=== PATIENT | male | born 1925 | race Caucasian/White ===

== ENCOUNTER 2016-07-06 09:34 | Day surgery (SDC) | payer MEDICARE ==
[~2016-07-06] VITALS: Ht 177.8 cm; Wt 85.0 kg
[~2016-07-06 09:34] MED LIST: 0.9% Sodium Chloride 1,000 ML IV PRN; ASPI-973 PO; CEPH500C PO; ECON15CR10 TOP; HYDR-4003 PO; ISOS30TA4 PO; KRIL1CAP19 PO; KTC2C15 TP; LOVA40TA PO; NITR0.4T SL; OMEP20CA11 PO; Sodium Chloride LOK Flush 10 mL Syringe IV PRN; TAMS0.4C98 PO; TERB250T11 PO; UBID1CAP58 PO; fentaNYL-PF 50 mCg/mL 2 mL Inj IVPUSH PRN
[2016-07-06 10:53] VITALS: BP 115/60; PULSE 69; RESP 14; O2SAT 97
[2016-07-06 12:10] VITALS: BP 96/61; PULSE 77; RESP 14; O2SAT 94
[2016-07-06 12:31] VITALS: BP_SYST 110; BP_SYST 112; BP_DIAS 65; BP_DIAS 66; PULSE 66; PULSE 77; RESP 14; O2SAT 94
--- NOTE | 2016-07-06 21:55 | ENDO ---
[address] [address] ENDOSCOPY PROCEDURE PATIENT: YU LAIRD : 1925 MR#: [id number] ADMIT: 07/06/2016 JOB ID: [id number] PRIMARY PROVIDER: Zoe Batista PA-C PROCEDURE: Colonoscopy with biopsies. INDICATIONS: An 89-year-old male with a personal history of colon polyps. He has had experienced a change in bowel habits. EQUIPMENT: PCF H 180 AL. SEDATION: 2 mg Versed and 50 mcg fentanyl. COMPLICATIONS: None identified. BOWEL PREPARATION: Fair, adequate exam. PROCEDURE IN DETAIL: After the risks and benefits were explained, written and verbal informed consent was obtained. The patient was brought into the endoscopy suite and placed into the left lateral decubitus position. Sedation was achieved using the above-stated medications with the addition of oxygen via nasal cannula. A digital rectal examination was accomplished. No significant pathology apart from some mild internal hemorrhoids were noted. The scope was introduced into the rectum and advanced under direct visualization to the level of the cecum, as identified by the appendiceal orifice and ileocecal valve. The scope was slowly withdrawn to carefully examine the mucosa for any defects or lesions. Retroflexed views were accomplished in the rectum. The colon was decompressed. The scope removed from the patient who tolerated the procedure well. FINDINGS: No significant polyps, mass lesions, or inflammatory features identified throughout. Random biopsies were taken for exclusion of microscopic colitis. There was some mild diverticulosis in the left colon. The patient had a lengthy, rather redundant colon. Retroflexed views performed within the rectum were unremarkable. ENDOSCOPIC DIAGNOSES: 1. Diverticulosis. 2. Hemorrhoids. RECOMMENDATIONS: 1. Await histopathology. 2. No surveillance colonoscopy is required or anticipated. 3. Continue with efforts to maintain hydration, activity and fiber supplementation as advised in the office. 4. Follow up with GI as needed.
--- NOTE | 2016-07-07 12:11 | PATH ---
SURGICAL PATHOLOGY Attending Physician:Devi Dunn CASE STATUS: Signed Out PATIENT NAME: YU LAIRD PID: [id number] : 1925 DATE COLLECTED:07/06/2016 21:36 SPECIMEN: Colon, Biopsy CLINICAL HISTORY: CHANGE IN BOWEL HABITS 1). RANDOM COLON BIOPSY FINAL DIAGNOSIS: 1.RANDOM COLON BIOPSY: COLONIC MUCOSA WITH NO DIAGNOSTIC ALTERATIONS. NEGATIVE FOR INFLAMMATION, DYSPLASIA AND MALIGNANCY. ICD10 CODE R19.4 GROSS DESCRIPTION: The specimen is received in one formalin filled container labeled with the patient's name, sublabeled "random colon" and consists of 2 extremely tiny portions of tissue which aggregate to 0.2 x 0.2 x 0.2 CM. The specimen is entirely submitted in one cassette. 07/06/2016 [facility] MICRO DESCRIPTION: See diagnosis. ICD-9 CODES: CPT CODES: 1: 06276 Electronically Signed Out Janeen Cadlera MD [facility] Pathology [facility] [address], [place] [address] Technical component performed at [facility], [address] [place] [address] Ave[address], [place], [address]
== END 2016-07-06 23:59 | disposition home or self-care (01) ==
LOC: END 09:34
PROVIDERS: ATTEND Internal Medicine Gastroenterology
DX: R19.4 Change in bowel habit (principal); K57.32 Diverticulitis of large intestine without perforation or abscess without bleeding; K64.8 Other hemorrhoids
CPT/HCPCS: 45380; 88305; 99153; G0500; J2250; J3010; J7030

== ENCOUNTER 2016-12-18 17:47 | Observation (INO) | payer MEDICARE ==
[~2016-12-18] VITALS: Ht 177.8 cm; Wt 86.0 kg
[~2016-12-18 17:47] MED LIST changes: -0.9% Sodium Chloride 1,000 ML IV PRN; -CEPH500C PO; -HYDR-4003 PO; -Sodium Chloride LOK Flush 10 mL Syringe IV PRN; -TAMS0.4C98 PO; -fentaNYL-PF 50 mCg/mL 2 mL Inj IVPUSH PRN
[2016-12-18 17:52] VITALS: BP 122/60; PULSE 88; RESP 18; O2SAT 98
--- NOTE | 2016-12-18 17:52 | ED.REPORT ---
HPI-Stroke / CVA Dec 18, 2016 ED Provider: Gary Bradley Patient is an 89 year old male with a hx of valvular heart disease, pacemaker insertion, and cardiac stent placement who presents to the ED complaining of L arm weakness s/p waking up from a nap at 1530 today. He was having difficulty moving his L arm upon waking and experienced "cramping" in his L hand. He reports that his symptoms gradually resolved after 5-10 minutes and he is now asymptomatic. He denies weakness, chest pain, SOB, confusion, headache, vision changes, abdominal pain, or any other symptoms. Nurses report that he was slightly disoriented upon arrival with an NIH stroke scale of 1. He is not on blood thinners but takes 81mg of aspirin daily. Nursing Notes Stated Complaint: STOKE SYMPTOMS Chief Complaint: Neuro Symptoms/ Deficits Nursing Notes Reviewed: Yes Allergies: Coded Allergies: No Known Allergies (Unverified , 03/15/16) Scheduled Aspirin (Aspirin) 81 Mg Tablet 81 MG PO QAM (Reported) Ketoconazole (Ketoconazole) 200 Mg Tablet 200 MG PO BID (Reported) Lovastatin (Lovastatin) 40 Mg Tablet 40 MG PO HS (Reported) Metoprolol Succinate ER (Metoprolol Succinate ER) 25 Mg Tab.er.24h 25 MG PO QAM (Reported) Haugan 3,6,9 Combination No.7 (Haugan Dha) 92 Mg (43 Mg-22 Mg-10 Mg-17 Mg) Tab.chew 1 TABLET PO QID (Reported) Omeprazole (Omeprazole) 20 Mg Capsule.dr 20 MG PO QAM (Reported) Tamsulosin (Flomax) 0.4 Mg Capsule 0.4 MG PO HS (Reported) Ubidecarenone/Vitamin E Mixed (Cop13-Zfb E 100 mg-10 Unit Sfg) 100 Mg-10 Unit Capsule 2 EACH PO QAM (Reported) Scheduled PRN Nitroglycerin SL (Nitrostat) 0.4 Mg Tab.subl 0.4 MG SL Q5MIN PRN PRN For Chest Pain (Reported) Triamcinolone Acet (Triamcinolone Acetonide Cream) 1 Applic/0.25 Gm Cr 1 APPLIC EXT BID PRN PRN RASH (Reported) General Time Seen by Provider: 17:52 Chief Complaint Weakness Left-sided Hx Obtained From: Patient Arrived By: Walk-in Time last known well 1529 Sudden in Onset?: Yes Progression Since Onset: Rapidly improving Severity: Current: No pain currently Severity: Maximum: No pain Pertinent Negative: Pt denies other symptoms Context Related History: Denies: Coagulation disorder Context: Immunizations Unknown Risk Factors )( TPA Administration/Criteria Stroke Thrombolytic Therapy : TPA Considered: Yes Neurologist Contacted: No TPA Administered Intravenously: No, exclusion criteria Relative Exclusion Crit: Rapidly improv stroke sym Addl Ex Criteria 3-4.5 Hr: Age > 80 years )( CVA Risk Stratification Age >60No Anticoag/bleed diathesis, No Atrial fibrillation, No Clotting disorder, No Oral contraceptive, No Prior CVA/TIA Risk factors reviewed Past Medical History Past Medical History Valvular heart disease MRSA Reports: GERD Past Surgical History CABG Reports: Back/neck surgery, Pacemaker insertion Smoking History Former Smoker Social History Other Social History: Good social support, Ambulatory Status Independent Review of Systems Review of Systems Note: +L hand cramping Respiratory: Denies: Shortness of breath Cardiovascular: Denies: Chest pain GI: Denies: Abdominal pain Neurologic: Reports: Weakness (L arm ), Denies: Confusion, Headache, Vision change Complete sys rev & neg: except as marked. Physical Exam Nursing note and vitals reviewed. Constitutional: Well-developed, well-nourished. Not diaphoretic. Head: Normocephalic and atraumatic. Mouth/Throat: Oropharynx is clear and moist. No oropharyngeal exudate. Eyes: EOM are normal. Pupils are equal, round, and reactive to light. Neck: Supple, no tracheal deviation. Cardiovascular: Normal rate, regular rhythm. Equal and intact distal pulses throughout. Pulmonary/Chest: Effort normal and breath sounds normal. No respiratory distress. Musculoskeletal: Range of motion grossly intact, moving all extremities. Neurological: AOx3. Grossly nonfocal exam. Strength and sensation intact and equal to bilateral upper and lower extremities. No pronator drift. NIH stroke scale score 0. Cranial nerves II-XII intact. Skin: Warm and dry, no rashes or pallor appreciated. Psychiatric: Appropriate mood and affect. Behavior appears normal. Initial Vital Signs Vital Signs (First) Date Time Temp Pulse Resp B/P Pulse Ox O2 Delivery O2 Flow Rate FiO2 12/18/16 17:52 37.1 88 18 122/60 98 Room Air Interpretation & Diagnostics Lab Results Interpretation Result Diagram: 12/18/16 1800 12/18/16 1800 Test 12/18/16 18:00 White Blood Count 5.6th/mm3 (3.8-10.1) Red Blood Count 3.68mil/mm3 (4.40-5.80) Hemoglobin 11.4g/dL (13.8-17.2) Hematocrit 33.7% (41.0-50.0) Mean Corpuscular Volume 91.6fL (81-100) Mean Corpuscular Hemoglobin 31.0pg (27.0-35.0) Mean Corpuscular Hemoglobin Concent 33.8% (32.0-37.0) Red Cell Distribution Width 14.6% (12.3-15.4) Platelet Count 118bil/L (150-400) Neutrophils (%) (Auto) 59.1% (40-74) Lymphocytes (%) (Auto) 26.3% (14-46) Monocytes (%) (Auto) 10.6% (4-12) Eosinophils (%) (Auto) 3.2% (0-5) Basophils (%) (Auto) 0.4% (0-3) Prothrombin Time 12.2sec (8.1-12.5) Prothromb Time International Ratio 1.14ratio Activated Partial Thromboplast Time 30.9sec (22.8-33.0) Sodium Level 143mEq/L (134-144) Potassium Level 4.5mEq/L (3.5-5.2) Chloride Level 106mEq/L (97-108) Carbon Dioxide Level 22mmol/L (18-29) Blood Urea Nitrogen 36mg/dL (8-27) Creatinine 1.81mg/dL (0.76-1.27) Estimat Glomerular Filtration Rate 38mL/min (>59) Glucose Level 102mg/dL (60-99) Calcium Level 9.0mg/dL (8.5-10.1) Total Bilirubin 0.3mg/dL (0.0-1.2) Aspartate Amino Transf (AST/SGOT) 21U/L (0-50) Alanine Aminotransferase (ALT/SGPT) 19U/L (0-44) Alkaline Phosphatase 59U/L (25-160) Troponin T < 0.010ug/L (0.0-0.011) Total Protein 6.6g/dL (6.4-8.4) Albumin 4.0g/dL (3.4-5.0) Hold Santos Top Tube Received (Received) Alcohols < 10mg/dL (0-10) ECG Interpretation ECG Interpretation: Rate 60 No significant change from previous Atrial-paced complexes nonspecific IVCD with LAD Probable anterolateral infarct, recent Time: 18:08 Interpreted by: ED physician X-Ray Chest Interpretation Chest Xray Interpretation: IMPRESSION: 1. No acute cardiopulmonary disease. 2. Several nonacute right rib fractures again noted. Dictated by: Graham Abrams M.D. on 12/18/2016 at 18:29 Approved by: Graham Abrams M.D. on 12/18/2016 at 18:31 View: Portable, 1 view Interpretation / Wet Read by: Interpret - Radiologist CT Head Interpretation IMPRESSION: No acute intracranial abnormalities. Mild periventricular white matter chronic small vessel ischemic change. Findings were discussed with Dr. Bradley at 1805 hrs on December 18, 2016. This study fulfills neurological imaging criteria for inclusion or exclusion of acute stroke therapies based on available published neurological guidelines. Dictated by: Graham Abrams M.D. on 12/18/2016 at 18:04 Approved by: Graham Abrams M.D. on 12/18/2016 at 18:06 Study: Head CT no contrast Interpretation / Wet Read by: Interpret - Radiologist Re-Eval/Medical Decision Med Decision/Clinical Course 89-year-old male presenting to the ED for evaluation of an episode of left- sided weakness several hours prior to arrival. His symptoms lasted for approximately 5-10 minutes and have improved. Patient is not a good candidate for TPA given his improvement in symptoms. I am concerned that he may have had a TIA and needs workup for this. His initial workup here in the emergency Department notable for a creatinine of 1.8, up from 1.4 previously. Chest x- ray with no acute changes from previous, no acute abnormalities today. Head CT also with no acute abnormalities, chronic small vessel ischemic changes present. Plan admission for further management and evaluation. Re-Evaluation/Progress : Time of Eval: 18:53 Re-Evaluation/Progress Note: Discussed plan for admission. Patient understands and agrees with plan. All questions addressed at this time. NIH Stroke Scale : Level of Consciousness: Alert and responsive (0) Ask Month & Age: Both questions right (0) Open/Close Eyes/Hand Conservation Engineer: Performs both tasks (0) Horizontal EO Movements: None (0) Visual Chase: No visual loss (0) Facial Palsy: Normal symmetry (0) Right Arm Motor Drift (10s): No drift 10 sec (0) Left Arm Motor Drift (10s): No drift 10 sec (0) Right Leg Motor Drift (5s): No drift 5 sec (0) Left Leg Motor Drift (5s): No drift 5 sec (0) Limb Ataxia FNF/Heel-Walter: No ataxia (0) Sensation (Arms/Legs/Face): No sensory loss (0) Language Aphasia: No aphasia, normal (0) Dysarthria: No dysarthria, normal (0) Extinction/Inattention: No exctinct/inattent (0) NIHSS Score: 0 Time NIHSS Performed: 18:45 Date NIHSS Performed: Dec 18, 2016 Consultation : Referral / Consult Name: Carmen Workman DO Call Returned at: 20:08 Fixed Capital Clerk: Will see patient, Agrees with eval, Agrees with plan, Accepts admit Note: Discussed pt's case. Accepts admit. Counseled Regarding: Diagnosis, Need for admission Patient Discharge & Departure Impression: Primary Impression: TIA (transient ischemic attack) Transient cerebral ischemia type: unspecified Qualified Code: G45.9 - Transient cerebral ischemic attack, unspecified Disposition: ADMITTED TO HOSPITAL Discharge Condition All VS Reviewed: Yes Condition: Improved Referrals: Zoe Batista PA-C (PCP) Crit Care Except Billable Proc Time Spent: 30-74 minutes Services Performed: Patient management by me, Time spent at bedside, Reviewing test results, Reviewing imaging, Discussing patient care, Documentation in record Critical Care Notes: Please see MDM. Scribe Attestation Portions of this note were transcribed by Zari Bowling. I, Dr. Bradley personally performed the history, physical exam and medical decision-making; I reviewed and confirmed the accuracy of the information in the transcribed note. Signed by: Zari Bowling 12/18/162014 copies to: Zoe Batista PA-C, William B MD Dec 18, 2016 17:52 ZARI BOWLING Dec 18, 2016 18:49
--- NOTE | 2016-12-18 18:07 | DRSVH ---
PROCEDURE: CT BRAIN (TPA) ([id number]) INDICATIONS: 89 year-old male with left facial droop. TECHNIQUE: Noncontrast 4.5 mm thick angled axial sections acquired from the foramen magnum to the vertex, with c oronal reformats. COMPARISON: None. FINDINGS: Image quality: Excellent. CSF spaces: Basal cisterns are patent. No extra-axial fluid collections. The ventricles are symmet rommel in size and shape. Brain: No intracranial bleeds or masses. There is mild cerebral volume loss for age, with resultant ventricular and sulcal prominence. There are mild periventricular and deep white matter chronic sma ll vessel ischemic changes. There is intracranial internal carotid artery atherosclerosis. Skull and face: Calvarium and visualized facial bones appear intact, without suspicious lesions. Sinuses: Visualized sinuses and mastoids are clear. IMPRESSION: No acute intracranial abnormalities. Mild periventricular white matter chronic small vess el ischemic change. Findings were discussed with Dr. Bradley at 1805 hrs on December 18, 2016. This study fulfills neurological imaging criteria for inclusion or exclusion of acute stroke therapie s based on available published neurological guidelines. Dictated by: Graham Abrams M.D. on 12/18/2016 at 18:04 Approved by: Graham Abrams M.D. on 12/18/2016 at 18:06
[2016-12-18] MEDS ORDERED: 0.9% Sodium Chloride 1,000 ML IV ONE (18:10)
[2016-12-18 18:20] LABS: BASOPHILS % (AUTO) 0.4 % (0-3); EOSINOPHILS % (AUTO) 3.2 % (0-5); MONOCYTES % (AUTO) 10.6 % (4-12); Mean Corpuscular Volume 91.6 fL (81-100); NEUTROPHILS % (AUTO) 59.1 % (40-74); Platelet Count 118 bil/L (150-400)
--- NOTE | 2016-12-18 18:32 | DRSVH ---
PROCEDURE: X-RAY CHEST ONE VIEW, PORTABLE ([id number]) INDICATIONS: 89 year-old male with stroke symptoms. TECHNIQUE: One view of the chest was acquired. COMPARISON: [facility], CR, XR CHEST 2VW, 03/16/2016, 7:12. [facility], CR, XR CHEST 1VW (PORTABLE), 03/15/2016, 10:13. [facility], CR, CHEST 2VW, 07/25/2013, 11:35. FINDINGS: Surgical changes and devices: Patient is status post coronary artery bypass grafting. Left chest wall dual chamber pacemaker is again noted. Lungs and pleura: No pleural effusions or pneumothorax. Lungs are clear. Mediastinum: Mediastinal contours appear normal. Heart size is normal. The aorta is tortuous as be fore. Bones and chest wall: No suspicious bony lesions. Posterior right fifth through seventh rib fractur es are again noted. Overlying soft tissues appear unremarkable. IMPRESSION: 1. No acute cardiopulmonary disease. 2. Several nonacute right rib fractures again noted. Dictated by: Graham Abrams M.D. on 12/18/2016 at 18:29 Approved by: Graham Abrams M.D. on 12/18/2016 at 18:31
[2016-12-18 18:37] LABS: INR 1.14 ratio
[2016-12-18 18:43] VITALS: BP 119/53; PULSE 60; RESP 20; O2SAT 98
[2016-12-18 18:44] LABS: TROPONIN T < 0.010 ug/L (0.0-0.011)
[2016-12-18 19:37] VITALS: BP 129/58; PULSE 66; RESP 22; O2SAT 98
[2016-12-18] MEDS ORDERED: METO25TA99 PO (19:58)
[2016-12-18] MEDS ORDERED: KETO200T PO (19:58)
[2016-12-18] MEDS ORDERED: TAMS0.4C98 PO (19:58)
[2016-12-18] MEDS ORDERED: KEN25CR EXT (20:00)
[2016-12-18] MEDS ORDERED: OMEG92TA PO (20:03)
[2016-12-18 20:30] LABS: APPEARANCE,URINE CLEAR (CLEAR,HAZY); COLOR,URINE YELLOW (YELLOW); OCCULT BLOOD,URINE NEGATIVE (NEGATIVE); UROBILINOGEN,URINE NORMAL (NORMAL)
[2016-12-18] MEDS ORDERED: Alum-Mag Hydrox-Simeth 30 mL Suspension PO PRN (20:40)
[2016-12-18] MEDS ORDERED: Ondansetron 2 mg/mL 2 mL Inj IVPUSH PRN (20:40)
[2016-12-18] MEDS ORDERED: Polyethylene Glycol (PEG) 17 Gm Powder PO PRN (20:40)
[2016-12-18] MEDS ORDERED: hydrALAZINE 20 mg/mL Inj IVPUSH PRN (20:40)
[2016-12-18] MEDS ORDERED: Labetalol 5 mg/mL 4 mL Inj IVPUSH PRN (20:40)
[2016-12-18] MEDS ORDERED: 0.9% Sodium Chloride 500 ML IV ONE (20:45)
--- NOTE | 2016-12-18 21:23 | PCM.HPMED ---
Subjective Date of Service Dec 18, 2016 Primary Provider: Admitting Physician: Carmen Workman DO Primary Care Physician: Zoe Batista PA-C Attending Physician: Carmen Workman DO Admit Status: From the Emergency Department Chief Complaint: left hand pain, left arm weakness History of Present Illness: Live is a pleasant 89 yo male with history of CAD status post CABG, SSS status post pacemaker insertion, hyperlipidemia, and GERD who presented to the ED for complaints of left hand pain and left arm weakness after waking up from a nap around 1530 today. Patient reports that he fell asleep in his recliner and when he woke up a few hours later, he noticed that his left hand was tingling and his 3 middle fingers were curled up and locked up. He tried to pry them open but was not able to for about 5 mins. After that his symptoms rapidly resolved and he was able to move his arm and hand. With his extensive history of heart disease, he was convinced this was a stroke, so he went to the ED for evaluation. During the episode, he did not have any chest pain/pressure, SOB, MAYEN , Dizziness, slurred speech, change in vision, N/V, abd pain, urinary or stool incontinence, or weakness in any other limb. Patient reports he was at home by himself at the time, so the episode was unwitnessed. In the past few weeks, he has not had any CP, fevers, or illnesses. He denies any new medications. He does take a baby aspirin daily. Upon arrival to the ER by EMS, he appeared mildly disoriented with a mild left facial droop per nursing report, but his NIHSS was only 1 for left visual field deficit during initial evaluation. His vital signs were WNL and stable. He was given a full dose aspirin.. Initial brain CT was benign Initially labs were pertinent for an elevated creatinine of 1.8. Review of Systems: Complete review of systems negative except as stated in history of present illness Allergies Coded Allergies: No Known Allergies (Unverified , 03/15/16) Home Medications From [employer] Aspir-81 81 mg tablet,delayed release take 1 tablet by oral route every day esomeprazole magnesium 20 mg capsule,delayed release take 1 capsule by oral route every day at least 1 hour before a meal swallowing whole. Do not crush or chew granules. lovastatin 40 mg tablet take 1 tablet by oral route every day with the evening meal nitroglycerin 0.[address] 1 tablet under tongue every 5 min if needed for chest tightness. 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 2015 Surgical History Back fusion in 1958 Family History Family history of colon cancer in brother High cholesterol and high blood pressure in mom and dad Social History 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 Resp: CTAB, normal resp effort, no crackles, wheezing, rhonchi Abd: Soft, NT/ND, NABS MSK: MS grossly intact and equal, no swollen or tender joints. Neuro: CN2-12 grossly intact and equal, normal gait, DTRs 2+ and equal, light sensation grossly intact, neg pronator drift, neg [id number] test Skin: Warm, dry, intact, no rash noted Psych: Appropriate mood and affect, linear though process, cooperative Lab and Diagnostics Result Diagram: 12/18/16 1800 12/18/16 1800 X-Rays, CTs and MRIs PROCEDURE: CT BRAIN (TPA) ([id number]) INDICATIONS: 89 year-old male with left facial droop. IMPRESSION: No acute intracranial abnormalities. Mild periventricular white matter chronic small vessel ischemic change. Findings were discussed with Dr. Bradley at 1805 hrs on December 18, 2016. This study fulfills neurological imaging criteria for inclusion or exclusion of acute stroke therapies based on available published neurological guidelines. 12-lead ECG Rate 60 No significant change from previous Atrial-paced complexes nonspecific IVCD with LAD read by ED physician Assessment & Plan 89 yo male with history of CAD status post CABG, SSS status post pacemaker insertion, hyperlipidemia, and GERD who presented to the ED by EMS for acute left arm weakness and mild left facial droop, which have rapidly resolved. Paresthesia, acute, POA Possible TIA Patient's presentation is suspicious of a transient ischemic attack. His symptoms rapidly resolved, so tPA was not given. Initial CT was benign. DDx: seizure, syncope, hypoglycemia Neuro checks q4HR overnight Placed on Telemetry for CV monitoring Allow for Permissive HTN for 24 hours Echocardiogram and MRI stroke protocol ordered PT/OT and swallow screen ordered. Patient reports he was taking his aspirin 81 daily when this episode occurred. Increased ASA to 325 daily HGBA1c and lipid panel pending Transitioning lovastatin to atorvastatin 40mg qHS Elevated creatinine, acute, POA Likely Acute on chronic kidney failure Patient's creatinine noted to be 1.8 on admission. Previous creatinine 1 year ago was 1.4. Uncertain of cause, UA was benign. Likely prerenal cause. Will avoid nephrotoxic medications. Will hydrate with NS at 150mls/hr and monitor Cr daily. Coronary artery disease s/p CABG, POA No anginal symptoms. Hold patient's Metoprolol XL given permissive HTN. He is not on a Lisinopril Hyperlipidemia, POA Transitioning lovastatin to atorvastatin 40mg qHS GERD, POA Continue home Omeprazole Tylenol prn fever/pain Zofran prn nausea CODE STATUS: Full resuscitation Disposition: Patient is admitted under observation status with expected length of stay less than 2 minutes due to severity of presentation, risk of adverse events, and medical complexity Pain Evaluation: Adequate Pain Control GI Prophylaxis: Not indicated VTE Prophylaxis: Sub-Q Heparin (Unfractionated) Resuscitation Status: CPR: Attempt Resuscitation Attending Statement The patient was seen and examined together with house staff on 12/18/3016 and I agree with the history, exam and plan as outlined in the note above. Willie Stinson DO Dec 18, 2016 21:23 Carmen Workman DO Dec 19, 2016 03:50
[2016-12-18] MEDS ORDERED: OMEGA COMBINATION NO 7 PO SCH (21:30)
[2016-12-18 23:55] VITALS: BP 136/72; PULSE 60; RESP 16; O2SAT 97
[2016-12-19] MEDS: Heparin 5,000 Unit/mL Inj SUBQ SCH ×2 (00:59→08:57)
[2016-12-19 05:33] VITALS: PULSE 68
[2016-12-19 05:59] VITALS: BP 146/78; PULSE 60; RESP 16; O2SAT 97
[2016-12-19 06:15] LABS: BASOPHILS % (AUTO) 0.4 % (0-3); EOSINOPHILS % (AUTO) 4.4 % (0-5); MONOCYTES % (AUTO) 10.9 % (4-12); Mean Corpuscular Volume 92.9 fL (81-100); NEUTROPHILS % (AUTO) 48.2 % (40-74); Platelet Count 101 bil/L (150-400)
[2016-12-19] MEDS ORDERED: Pantoprazole 20 mg ER24 Tablet PO SCH (06:30)
--- NOTE | 2016-12-19 07:09 | NUR ---
NOC/Neuro Pt admitted to [facility] due to TIA. Neuro VS done. Pt is alert and oriented. No facial droop, no slurring of speech or tongue deviation. Noted bilateral equal frame stripper and crusher and lower extremities strength for age. CVA education provided s/sx of cva and when to call 911. CVA booklet provided.
[2016-12-19] MEDS ORDERED: MeTOProlol XL 25 mg ER24 Tablet PO SCH (08:30)
--- NOTE | 2016-12-19 08:52 | NUR ---
Evaluation completed. Please go to "Notes" then click on "Assessments and Notes" (bottom left corner of screen). Then select appropriate discipline tab on top of screen.
[2016-12-19 08:57] VITALS: BP 159/79; PULSE 59; RESP 16; O2SAT 98
[2016-12-19 09:00] VITALS: PULSE 63
--- NOTE | 2016-12-19 09:09 | NUR ---
Evaluation completed. Please go to "Notes" then click on "Assessments and Notes" (bottom left corner of screen). Then select appropriate discipline tab on top of screen.
--- NOTE | 2016-12-19 13:17 | NUR ---
NEURO/ACTIVITY Patient is alert and oriented X 4. BUE/BLE is equal in strength. No facial drooping noted. Patient denies pain. Tolerating liquids PO and his diet well. Denies nausea. No emesis noted. Denies SOB. Ambulating independently in the room. Gait is steady. Voiding without any problems. Patient is on remote tele. Per telegrapher agent patient is AV paced; HR-60's with some PVC's. Cleared by SPT and PT with recommendations for out patient therapy. Echo and US of the carotid arteries are still pending to be done this afternoon. is aware of this.
--- NOTE | 2016-12-19 13:48 | NUR ---
CYNDY explained and signed. Copy of CYNDY and Medicare self administered medication information given to pt.
[2016-12-19 13:58] VITALS: BP 147/72; PULSE 58; RESP 16; O2SAT 98
--- NOTE | 2016-12-19 16:09 | PCM.DIMED ---
Discharge Instructions Date of Service Dec 19, 2016 Dates of Hospitalization Dec 18, 2016 at 19:34 Discharge Diagnosis Discharge Diagnosis # Left hand Paresthesia and brief inability to to extend left hand fingers , acute, POA due to TIA vs radial nurve compression during nap #Nicolasa , acute, POA, resolved # Coronary artery disease s/p CABG, POA # Hyperlipidemia, POA # GERD, POA Patient Instructions Patient Instructions You were hospitalized due to Left hand Paresthesia and brief inability to to extend left hand fingers. It is possible you had TIA. Please continue aspirin and atorvastatin. It is also possible that you had the symptoms due to compression of radial nerve during sleep. Symptoms resolved. MRI not done due to pacemaker. Please follow-up with PCP in 2 weeks and discuss hospitalization. Follow-up Provider: Zoe Batista PA-C Follow-up with PCP in: 2 weeks Juan Miller MD Dec 19, 2016 16:09 Juan Miller MD Dec 19, 2016 16:09
--- NOTE | 2016-12-19 16:30 | NUR ---
Social Work: Initial Assessment / D/C Data: Pt is an 89 y/o male admitted for TIA. Pt's PCP is Dr Batista, pt's insurance is Medicare with [employer] supp. EMR reviewed. D/C orders are in. Pt states he lives on [address] with his in a single story home where he uses no DME, drives, has no hx of HH or SNF, no LTC or VA benefits, and is not a caregiver. No d/c planning needs at this time. BARGEMAN will continue to follow if needs arise. Assessment: Pt who is independent at baseline. Plan: Pt will d/c home via POV today with spouse. No d/c planning needs at this time. BARGEMAN will continue to follow if needs arise. DIANDRA Contreras Addendum: 12/19/16 at 1632 by CRISTOBAL DWYER SS Amended: Links added.
--- NOTE | 2016-12-19 16:31 | NUR ---
discharge paperwork reviewed, no questions at this time. pt chooses to ambulate himself to the car. to return to private home. pt denies pain/distress
--- NOTE | 2016-12-19 16:56 | DRSVH ---
[facility] [address] [place] [address] Echocardiogram Report Name: YU LAIRD te: 12/19/2016 Height: 70 in Hospital Exam Location: [facility] Weight: 190 lb Gender: Male BSA: 2.0 m2 : 1925 Age: 89 yrs BP: 145/78 mmHg Reason For Study: TIA Ordering Physician: HOSPITALIST [facility] Performed By: Paris Paulino Referring Physician: Bianca Restrepo Interpretation Summary The left ventricle is normal in size. The ejection fraction is estimated to be 55-60%. Apical wall motion abnormality may reflect pacemaker activation. Assessment of diastolic parameters indicates a relaxation abnormality of the left ventricle, consistent with normal filling pressures. There is a pacemaker lead in the right ventricle. There is moderate to severe tricuspid regurgitation. Right ventricular systolic pressure is estimated to be 34 mmHg plus the clinically estimated CVP which cannot be estimated on this exam. The right ventricle is moderate to severely dilated. Right ventricular systolic function is moderately reduced. Injection of contrast documented no interatrial shunt. Moderate AAA measuring 3.5 cm. No other echocardiographic abnormalities seen. Compared with the prior exam there are no significant changes. The RV size and function are similar and I would read the prior exam as showing moderately severe RV enlargement and moderate RV dysfunction. No obvious etiology for the patients TIA is noted on this exam. Procedure: A two-dimensional transthoracic echocardiogram with color flow and Doppler was performed. The study quality was technically adequate. Comparison is made with the echocardiogram of 08-13-15. The patient has a paced rhythm. The patient was in normal sinus rhythm during the exam. Left Ventricle: The left ventricle is normal in size. There is normal left ventricular wall thickness. The ejection fraction is estimated to be 55-60%. Apical wall motion abnormality may reflect pacemaker activation. Assessment of diastolic parameters indicates a relaxation abnormality of the left ventricle, consistent with normal filling pressures. Right Ventricle: The right ventricle is moderate to severely dilated. There is a pacemaker lead in the right ventricle. Right ventricular systolic function is moderately reduced. Atria: The left atrium grossly appears normal in size. The right atrium is mildly dilated. There is a catheter/pacemaker lead seen in the right atrium. Injection of contrast documented no interatrial shunt. Mitral Valve: The mitral valve leaflets appear mildly thickened, but open well. The mitral valve leaflets are mildly calcified. There is moderate to severe mitral annular calcification. There is mild mitral regurgitation. Aortic Valve: The aortic valve is trileaflet. The aortic valve opens well. Tricuspid Valve: The tricuspid valve leaflets are thickened and/or calcified, but open well. There is moderate to severe tricuspid regurgitation. Right ventricular systolic pressure is estimated to be 34 mmHg plus the clinically estimated CVP which cannot be estimated on this exam. Pulmonic Valve: The pulmonic valve is normal in structure and function. There is trace pulmonic regurgitation. Great Vessels: The aortic root is normal size. The ascending aorta is at the upper limits of normal in size. Moderate AAA measuring 3.5 cm. The inferior vena cava was not visualized. Pericardium/ Pleura There is no pericardial effusion. There is no pleural effusion. MMode/2D Measurements & Calculations LVIDd: 4.7 cm LA dimension: 3.9 cm RA long axis Ao root diam LVIDs: 3.0 cm FS: 35.7 % RA area Aortic Jxn: 3.1 cm IVSd: 0.87 cm asc Aorta Diam LVPWd: 0.67 cm : 21.7 cm RA vol Ao Arch Diam (Prox : 77.3 ml Trans): 3.4 cm RA : 37.9 mm/ RVDd major : 5.5 cm LV marie. diameter/BSA LV sys. diameter/BSA RVD2 (mid) (cm/m^2): 2.3 (cm/m^2): 1.5 : 4.4 cm Doppler Measurements & Calculations MV E max junaid MV E/A: 0.76 TR max junaid MV dec time : 65.9 cm/sec Med Peak E' Junaid : 289.5 cm/sec : 0.29 sec MV A max junaid TR max PG : 87.0 cm/sec E/E' med: 12.5 : 33.5 mmHg MV P1/2t: 83.3 msec Lat Peak E' Junaid PA V2 max : 90.6 cm/sec E/E' lat: 5.6 PA mean PG E/e' average: 9.1 PA Accel Time MV P1/2t max junaid PA V2 mean : 55.2 cm/sec MVA(P1/2t): 2.6 cm2 Reading Physician:04:56 PM
--- NOTE | 2016-12-19 19:22 | DRSVH ---
PROCEDURE: US BILATERAL DUPLEX DOPPLER IMAGING OF THE CAROTIDS ([id number]) INDICATIONS: TIA TECHNIQUE: Color and pulse Doppler interrogation was performed of both carotid systems, with image documentation and velocity measurements. COMPARISON: [facility], US, CAROTID DUPLEX DOPPLER BILAT, 03/05/2011, 10:01. FINDINGS: Stenosis calculations are based on SRU (Society of Radiologists in Ultrasound) criteria. Right side: Brachial blood pressure: 140/74 mm Hg. Common carotid artery peak systolic velocity: 64 cm/sec. Internal carotid artery peak systolic velocity: 84 cm/sec. Internal carotid artery end diastolic velocity: 21 cm/sec. External carotid artery peak systolic velocity: 75 cm/sec. ICA/CCA peak systolic ratio: 1.32. Herndon scale imaging description: Calcified plaques at the bifurcation Percent internal carotid artery stenosis: Less than 50% and unchanged. Vertebral artery: Flow direction is antegrade. Left side: Brachial blood pressure: 138/74 mm Hg. Common carotid artery peak systolic velocity: 79 cm/sec. Internal carotid artery peak systolic velocity: 80 cm/sec. Internal carotid artery end diastolic velocity: 17 cm/sec. External carotid artery peak systolic velocity: 112 cm/sec. ICA/CCA peak systolic ratio: 1.01. Herndon scale imaging description: High bifurcation. Calcified plaques at the bifurcation. Percent internal carotid artery stenosis: Less than 50%. Vertebral artery: Flow direction is antegrade. IMPRESSION: 1. Less than 50% internal carotid artery stenosis bilaterally without significant change from the las t exam dated 07/31/2013. 2. 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 3. Antegrade vertebral artery flow bilaterally. Dictated by: Soha Kaye M.D. on 12/19/2016 at 19:18 Approved by: Soha Kaye M.D. on 12/19/2016 at 19:20
--- NOTE | 2016-12-19 20:44 | PCM.DC.MED ---
Discharge Summary Date of Service Dec 19, 2016 Dates of Hospitalization Date of Hospital Admission Dec 18, 2016 at 19:34 Date of Discharge: Dec 19, 2016 Providers: Admitting Physician: Juan Miller MD Primary Care Physician: Zoe Batista PA-C Attending Physician: Juan Miller MD Diagnosis at Time of Discharge Diagnosis at Time of Discharge # Left hand Paresthesia and brief inability to to extend left hand fingers , acute, POA due to TIA vs radial nurve compression during nap #Nicolasa , acute, POA, resolved # Coronary artery disease s/p CABG, POA # Hyperlipidemia, POA # GERD, POA Procedures XRay, CTs & MRIs PROCEDURE: CT BRAIN (TPA) ([id number]) INDICATIONS: 89 year-old male with left facial droop. IMPRESSION: No acute intracranial abnormalities. Mild periventricular white matter chronic small vessel ischemic change. Findings were discussed with Dr. Bradley at 1805 hrs on December 18, 2016. This study fulfills neurological imaging criteria for inclusion or exclusion of acute stroke therapies based on available published neurological guidelines. ECG 12 Lead Rate 60 No significant change from previous Atrial-paced complexes nonspecific IVCD with LAD read by ED physician Cardiac Echo Impression Interpretation Summary The left ventricle is normal in size. The ejection fraction is estimated to be 55-60%. Apical wall motion abnormality may reflect pacemaker activation. Assessment of diastolic parameters indicates a relaxation abnormality of the left ventricle, consistent with normal filling pressures. There is a pacemaker lead in the right ventricle. There is moderate to severe tricuspid regurgitation. Right ventricular systolic pressure is estimated to be 34 mmHg plus the clinically estimated CVP which cannot be estimated on this exam. The right ventricle is moderate to severely dilated. Right ventricular systolic function is moderately reduced. Injection of contrast documented no interatrial shunt. Moderate AAA measuring 3.5 cm. No other echocardiographic abnormalities seen. Compared with the prior exam there are no significant changes. The RV size and function are similar and I would read the prior exam as showing moderately severe RV enlargement and moderate RV dysfunction. No obvious etiology for the patients TIA is noted on this exam. Other Diagnostics PROCEDURE: US BILATERAL DUPLEX DOPPLER IMAGING OF THE CAROTIDS ([id number]) INDICATIONS: TIA IMPRESSION: 1. Less than 50% internal carotid artery stenosis bilaterally without significant change from the last exam dated 07/31/2013. 2. 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 3. Antegrade vertebral artery flow bilaterally. Dictated by: Soha Kaye M.D. on 12/19/2016 at 19:18 Brief History per HPI Live is a pleasant 89 yo male with history of CAD status post CABG, SSS status post pacemaker insertion, hyperlipidemia, and GERD who presented to the ED for complaints of left hand pain and left arm weakness after waking up from a nap around 1530 today. Patient reports that he fell asleep in his recliner and when he woke up a few hours later, he noticed that his left hand was tingling and his 3 middle fingers were curled up and locked up. He tried to pry them open but was not able to for about 5 mins. After that his symptoms rapidly resolved and he was able to move his arm and hand. With his extensive history of heart disease, he was convinced this was a stroke, so he went to the ED for evaluation. During the episode, he did not have any chest pain/pressure, SOB, MAYEN , Dizziness, slurred speech, change in vision, N/V, abd pain, urinary or stool incontinence, or weakness in any other limb. Patient reports he was at home by himself at the time, so the episode was unwitnessed. In the past few weeks, he has not had any CP, fevers, or illnesses. He denies any new medications. He does take a baby aspirin daily. Upon arrival to the ER by EMS, he appeared mildly disoriented with a mild left facial droop per nursing report, but his NIHSS was only 1 for left visual field deficit during initial evaluation. His vital signs were WNL and stable. He was given a full dose aspirin.. Initial brain CT was benign Initially labs were pertinent for an elevated creatinine of 1.8. Hospital Course 89 yo male with history of CAD status post CABG, SSS status post pacemaker insertion, hyperlipidemia, and GERD who presented to the ED by EMS for acute left arm weakness and mild left facial droop, which have rapidly resolved. # Left hand Paresthesia and brief inability to to extend left hand fingers , acute, POA due to TIA vs radial nurve compression during sleep due to bad positioning . TIA unlikely ,patient describes he was unable to extend left hand fingers and felt numb.likley nerve compression .no associated arm weakness .isolated hand extensor weakness Echocardiogram unchanged MRI not done due to pacemaker Patient reports he was taking his aspirin 81 daily ,c/w home ASA c/w lovastatin # Elevated creatinine, acute, POA Likely Acute on chronic kidney failure Patient's creatinine noted to be 1.8 on admission. Previous creatinine 1 year ago was 1.4. Uncertain of cause, UA was benign. Likely prerenal cause. Will avoid nephrotoxic medications. Will hydrate with NS at 150mls/hr and monitor Cr daily.improved to baseline # Coronary artery disease s/p CABG, POA No anginal symptoms c/w Metoprolol XL # Hyperlipidemia, POA c/w lovastatin #GERD, POA Continue home Omeprazole discharge home condition stable Exam Vital Signs (Last) Date Time Temp Pulse Resp B/P Pulse Ox O2 Delivery O2 Flow Rate FiO2 12/19/16 13:58 36.7 58 16 147/72 98 Room Air Exam General: Elderly male who appears in no acute distress, alert and oriented, well-developed HEENT: NC/AT, sclera anicteric, PERRLA, oropharynx moist and pink Neck: Soft, nontender, trachea midline, no JVD noted at 30 degrees CV: RRR with soft systolic murmur, Midline sternotomy scar noted, pacemaker palpable on upper left chest. Resp: CTAB, normal resp effort, no crackles, wheezing, rhonchi Abd: Soft, NT/ND, NABS MSK: MS grossly intact and equal, no swollen or tender joints. Neuro: CN2-12 grossly intact and equal, normal gait, DTRs 2+ and equal, light sensation grossly intact, neg pronator drift, neg [id number] test Skin: Warm, dry, intact, no rash noted Psych: Appropriate mood and affect, linear though process, cooperative Test 12/18/16 18:00 12/18/16 19:42 12/19/16 05:42 Prothrombin Time 12.2sec (8.1-12.5) Prothromb Time International Ratio 1.14ratio Activated Partial Thromboplast Time 30.9sec (22.8-33.0) Total Creatine Kinase 87U/L (21-232) Troponin T < 0.010ug/L (0.0-0.011) Hold Santos Top Tube Received (Received) Alcohols < 10mg/dL (0-10) Urine Color Yellow (YELLOW) Urine Appearance Clear (CLEAR,HAZY) Urine pH 5.0 (5.0-8.0) Urine Specific [place] 1.025 (1.003-1.035) Urine Protein Negativemg/dL (NEG,TRACE) Urine Glucose (UA) Negativemg/dL (NEGATIVE) Urine Ketones Negativemg/dL (NEGATIVE) Urine Occult Blood Negative (NEGATIVE) Urine Nitrite Negative (NEGATIVE) Urine Bilirubin Negative (NEGATIVE) Urine Urobilinogen Normalmg/dL (NORMAL) Urine Leukocyte Esterase Negative (NEGATIVE) Urine RBC 0-2/hpf (0-2) Urine WBC 0-5/hpf (0-5) Urine Epithelial Cells Occasional/hpf (NONE-MOD) Urine Crystals None seen (NONE SEEN) Urine Bacteria None/hpf (NONE-FEW) Urine Hyaline Casts None/lpf (NONE) Urine Granular Casts None seen (NONE SEEN) Urine Waxy Casts None seen (NONE SEEN) Urine Red Blood Cell Casts None seen (NONE SEEN) Urine White Blood Cell Casts None seen (NONE SEEN) Urine Mucus None seen (None Seen) Urine Trichomonas None seen (NONE SEEN) Urine Yeast None (NONE SEEN) Urinalysis Comment None Urine Culture Reflexed Not indicated White Blood Count 4.8th/mm3 (3.8-10.1) Red Blood Count 3.52mil/mm3 (4.40-5.80) Hemoglobin 10.9g/dL (13.8-17.2) Hematocrit 32.7% (41.0-50.0) Mean Corpuscular Volume 92.9fL (81-100) Mean Corpuscular Hemoglobin 31.0pg (27.0-35.0) Mean Corpuscular Hemoglobin Concent 33.3% (32.0-37.0) Red Cell Distribution Width 14.8% (12.3-15.4) Platelet Count 101bil/L (150-400) Neutrophils (%) (Auto) 48.2% (40-74) Lymphocytes (%) (Auto) 35.5% (14-46) Monocytes (%) (Auto) 10.9% (4-12) Eosinophils (%) (Auto) 4.4% (0-5) Basophils (%) (Auto) 0.4% (0-3) Sodium Level 142mEq/L (134-144) Potassium Level 4.4mEq/L (3.5-5.2) Chloride Level 108mEq/L (97-108) Carbon Dioxide Level 22mmol/L (18-29) Blood Urea Nitrogen 30mg/dL (8-27) Creatinine 1.35mg/dL (0.76-1.27) Estimat Glomerular Filtration Rate 53mL/min (>59) Glucose Level 101mg/dL (60-99) Calcium Level 8.5mg/dL (8.5-10.1) Total Bilirubin 0.4mg/dL (0.0-1.2) Aspartate Amino Transf (AST/SGOT) 18U/L (0-50) Alanine Aminotransferase (ALT/SGPT) 17U/L (0-44) Alkaline Phosphatase 55U/L (25-160) Total Protein 5.7g/dL (6.4-8.4) Albumin 3.8g/dL (3.4-5.0) Triglycerides Level 47mg/dL (0-149) Cholesterol Level 97mg/dL (100-199) LDL Cholesterol, Calculated 51.600mg/dL (0-99) VLDL Cholesterol 9.400mg/dL HDL Cholesterol 36mg/dL (>39) Cholesterol/HDL Ratio 2.69 (0.0-4.4) Discharge Medications Discharge Medications Aspirin (Aspirin) 81 Mg Tablet 81 MG PO QAM (Reported) Ketoconazole (Ketoconazole) 200 Mg Tablet 200 MG PO BID (Reported) Lovastatin (Lovastatin) 40 Mg Tablet 40 MG PO HS (Reported) Metoprolol Succinate ER (Metoprolol Succinate ER) 25 Mg Tab.er.24h 25 MG PO QAM (Reported) [place] 3,6,9 Combination No.7 ([place] Dha) 92 Mg (43 Mg-22 Mg-10 Mg-17 Mg) Tab.chew 1 TABLET PO QID (Reported) Omeprazole (Omeprazole) 20 Mg Capsule.dr 20 MG PO QAM (Reported) Tamsulosin (Flomax) 0.4 Mg Capsule 0.4 MG PO HS (Reported) Ubidecarenone/Vitamin E Mixed ([id number] E 100 mg-10 Unit Sfg) 100 Mg-10 Unit Capsule 2 EACH PO QAM (Reported) As needed Nitroglycerin SL (Nitrostat) 0.4 Mg Tab.subl 0.4 MG SL Q5MIN PRN PRN For Chest Pain (Reported) Triamcinolone Acet (Triamcinolone Acetonide Cream) 1 Applic/0.25 Gm Cr 1 APPLIC EXT BID PRN PRN RASH (Reported) Followup Plan Disposition: home Patient Instructions You were hospitalized due to Left hand Paresthesia and brief inability to to extend left hand fingers. It is possible you had TIA. Please continue aspirin and atorvastatin. It is also possible that you had the symptoms due to compression of radial nerve during sleep. Symptoms resolved. MRI not done due to pacemaker. Please follow-up with PCP in 2 weeks and discuss hospitalization. Follow-up Provider: Zoe Batista PA-C Follow-up with PCP in: 2 weeks copies to: Zoe Batista PA-C, Melaku MD Dec 19, 2016 20:44
== END 2016-12-19 16:35 | disposition home or self-care (01) ==
LOC: SED 17:47 → MPC 19:34
PROVIDERS: ADMIT Internal Medicine; ATTEND Internal Medicine
DX: R20.8 Other disturbances of skin sensation (principal); R29.810 Facial weakness; G45.9 Transient cerebral ischemic attack, unspecified; N17.9 Acute kidney failure, unspecified; I25.10 Atherosclerotic heart disease of native coronary artery without angina pectoris; E78.5 Hyperlipidemia, unspecified; K21.9 Gastro-esophageal reflux disease without esophagitis; I49.5 Sick sinus syndrome; N40.0 Benign prostatic hyperplasia without lower urinary tract symptoms; M19.90 Unspecified osteoarthritis, unspecified site; Z87.891 Personal history of nicotine dependence; Z95.0 Presence of cardiac pacemaker; Z95.1 Presence of aortocoronary bypass graft; Z79.82 Long term (current) use of aspirin
CPT/HCPCS: 36415; 70450; 71010; 80053; 80061; 81000; 82550; 82948; 83036; 84484; 85025; 85610; 85730; 92610; 93005; 93880; 97161; 99291; C8929; G0378; G0480; G8978; G8979; G8980; G8996; G8997; J1644; J7030; J7040

== ENCOUNTER 2017-02-01 18:11 | Inpatient (IN) | payer MEDICARE ==
[~2017-02-01] VITALS: Ht 188 cm; Wt 87.6 kg
[~2017-02-01 18:11] MED LIST changes: -ECON15CR10 TOP; -ISOS30TA4 PO; +KEN25CR EXT; +KETO200T PO; -KRIL1CAP19 PO; -KTC2C15 TP; +METO25TA99 PO; +OMEG92TA PO; +TAMS0.4C98 PO; -TERB250T11 PO
[2017-02-01 18:15] VITALS: BP 111/56; PULSE 59; RESP 22; O2SAT 97
--- NOTE | 2017-02-01 18:28 | ED.REPORT ---
HPI-Extremity Problem Lower Date of Service Feb 01, 2017 ED Provider: Rey Woodall PA-C Live is an 89-year-old male presenting with chief complaint of right hip and leg pain. She reports carrying a heavy bucket of water out to water his chickens when he stumbled and fell on some uneven ground, resulting in pain in his right hip and leg. Patient states he was unable to move from that position and waited for more than hour for his to come home. Patient reports that any motion produces cramping pain. Nursing Notes Stated Complaint: RIGHT HIP PAIN Chief Complaint: Extremity Trauma Nursing Notes Reviewed: Yes Allergies: Coded Allergies: No Known Allergies (Unverified , 03/15/16) Scheduled Aspirin (Aspirin) 81 Mg Tablet 81 MG PO QAM Ketoconazole (Ketoconazole) 200 Mg Tablet 200 MG PO BID Lovastatin (Lovastatin) 40 Mg Tablet 40 MG PO HS Metoprolol Succinate ER (Metoprolol Succinate ER) 25 Mg Tab.er.24h 25 MG PO QAM [place] 3,6,9 Combination No.7 ([place] Dha) 92 Mg (43 Mg-22 Mg-10 Mg-17 Mg) Tab.chew 1 TABLET PO QID Omeprazole (Omeprazole) 20 Mg Capsule.dr 20 MG PO QAM Tamsulosin (Flomax) 0.4 Mg Capsule 0.4 MG PO HS Ubidecarenone/Vitamin E Mixed (Uxd30-Snc E 100 mg-10 Unit Sfg) 100 Mg-10 Unit Capsule 2 EACH PO QAM Scheduled PRN Nitroglycerin SL (Nitrostat) 0.4 Mg Tab.subl 0.4 MG SL Q5MIN PRN PRN For Chest Pain General Time Seen by MD: 18:16 Chief Complaint Hip injury right Past Medical History Past Medical History Valvular heart disease MRSA Reports: GERD Past Surgical History CABG Reports: Back/neck surgery, Pacemaker insertion Smoking History Former Smoker Social History Other Social History: Good social support, Ambulatory Status Independent Review of Systems Review of Systems Note: Negative unless stated otherwise in history of present illness Physical Exam General: Well appearing, well developed, well nourished, no acute distress. Right hip: Tender, range of motion is not tolerated Right leg: Tender along the femur, normal to inspection Right knee: Nontender, normal to inspection Foot/ankle, DP and PT pulses 2+. Head: Atraumatic, normocephalic. Eyes: No scleral icterus or injection. No discharge. Vision grossly intact. ENT: Voice clear, hearing grossly intact. Respiratory: Regular rate and rhythm. Breath sounds present, clear to auscultation and equal bilaterally. No respiratory distress. No increased work of breathing, speaks in complete sentences. Cardiovascular: Regular rate and rhythm, without murmur, gallop or rub. No pedal edema. Gastrointestinal: Abdomen flat and non-tender without guarding or rebound. Bowel sounds normoactive. Skin: Warm and dry. Neurological: Grossly nonfocal. Psychological: Alert and oriented. Speech appropriate, linear and logical. Behavior appropriate. Initial Vital Signs Vital Signs (First) Date Time Temp Pulse Resp B/P Pulse Ox O2 Delivery O2 Flow Rate FiO2 02/01/17 18:15 59 22 111/56 97 Room Air Normal Interpretation & Diagnostics Lab Results Interpretation Result Diagram: 02/01/17 1845 02/01/17 1845 Test 02/01/17 18:45 White Blood Count 5.4th/mm3 (3.8-10.1) Red Blood Count 3.50mil/mm3 (4.40-5.80) Hemoglobin 11.1g/dL (13.8-17.2) Hematocrit 32.8% (41.0-50.0) Mean Corpuscular Volume 93.7fL (81-100) Mean Corpuscular Hemoglobin 31.7pg (27.0-35.0) Mean Corpuscular Hemoglobin Concent 33.8% (32.0-37.0) Red Cell Distribution Width 15.0% (12.3-15.4) Platelet Count 109bil/L (150-400) Neutrophils (%) (Auto) 73.5% (40-74) Lymphocytes (%) (Auto) 17.6% (14-46) Monocytes (%) (Auto) 6.4% (4-12) Eosinophils (%) (Auto) 1.7% (0-5) Basophils (%) (Auto) 0.2% (0-3) Hold Purple Top Tube Received (Received) Prothrombin Time 11.4sec (8.1-12.5) Prothromb Time International Ratio 1.06ratio Hold Blue Top Tube Received (Received) Sodium Level 137mEq/L (134-144) Potassium Level 4.7mEq/L (3.5-5.2) Chloride Level 103mEq/L (97-108) Carbon Dioxide Level 21mmol/L (18-29) Blood Urea Nitrogen 31mg/dL (8-27) Creatinine 1.92mg/dL (0.76-1.27) Estimat Glomerular Filtration Rate 35mL/min (>59) Glucose Level 112mg/dL (60-99) Calcium Level 8.7mg/dL (8.5-10.1) Total Bilirubin 0.5mg/dL (0.0-1.2) Aspartate Amino Transf (AST/SGOT) 21U/L (0-50) Alanine Aminotransferase (ALT/SGPT) 19U/L (0-44) Alkaline Phosphatase 52U/L (25-160) Total Protein 6.4g/dL (6.4-8.4) Albumin 4.1g/dL (3.4-5.0) Hold [place] Top Tube Received (Received) Re-Eval/Medical Decision Med Decision/Clinical Course 89-year-old male reports stumbling and falling on uneven ground resulting in right hip pain. Brought to the emergency department by EMS. Leg is held in external rotation and slight flexion, patient resists range of motion. Extremely tender. Neurovascularly intact distal. Normal vital signs. X-ray reveals femoral neck fracture, discussed case with Dr. collier and examined the patient. Plan to admit hospitalist service, nothing by mouth after midnight, surgery tomorrow. Discussed case with hospitalist who accepted admission. Patient transferred to floor in stable condition. Consultation : Referral / Consult Name: Grady Collier DO Call Returned at: 20:04 Note: I discussed the case with Dr. jain met with and examined the patient as well as reviewed the films. Diagnosis of femoral neck fracture. Plan to admit hospitalist, coronary pacemaker, nothing by mouth after midnight, surgery tomorrow. Discharge & Departure Impression: Primary Impression: Fracture of femoral neck, right, closed Encounter type: initial encounter Qualified Code: S72.001A - Fracture of unspecified part of neck of right femur, initial encounter for closed fracture Disposition: ADMITTED TO HOSPITAL Referrals: Zoe Batista PA-C (PCP) EDSupervising Provider for APC: Denver Lu Seth PA-C Feb 01, 2017 18:28
[2017-02-01] MEDS: HYDROmorphone 1 mg/mL Inj IVPUSH PRN ×3 (18:45→19:49)
[2017-02-01] MEDS ORDERED: Ondansetron 2 mg/mL 2 mL Inj IVPUSH ONE (18:55)
[2017-02-01 19:27] VITALS: BP 119/60; PULSE 59; RESP 24; O2SAT 98
--- NOTE | 2017-02-01 19:31 | DRSVH ---
PROCEDURE: X-RAY RIGHT FEMUR, TWO VIEWS ([id number]) INDICATIONS: right hip and leg pain TECHNIQUE: 2 views of the femur were acquired. COMPARISON: None. FINDINGS: Bones: No fractures or dislocations. No suspicious bony lesions. The neck of the right femur is di fficult to image because of external rotation of the leg and the statement that the patient could not move the leg. Soft tissues: No suspicious soft tissue calcifications or masses. IMPRESSION: No fracture of the right femur is identified. Limited view of the right femoral neck rolo use of extreme external rotation and patient's inability to move the leg. Dictated by: Clifton Chapman M.D. on 02/01/2017 at 19:29 Approved by: Clifton Chapman M.D. on 02/01/2017 at 19:30
[2017-02-01 19:37] LABS: BASOPHILS % (AUTO) 0.2 % (0-3); EOSINOPHILS % (AUTO) 1.7 % (0-5); MONOCYTES % (AUTO) 6.4 % (4-12); Mean Corpuscular Hemoglobin 31.7 pg (27.0-35.0); Mean Corpuscular Volume 93.7 fL (81-100); NEUTROPHILS % (AUTO) 73.5 % (40-74); Platelet Count 109 bil/L (150-400)
--- NOTE | 2017-02-01 20:11 | DRSVH ---
PROCEDURE: X-RAY RIGHT HIP COMPLETE, MINIMUM TWO VIEWS ([id number]) INDICATIONS: right hip and leg pain TECHNIQUE: 3 views of the hip were acquired. COMPARISON: None. FINDINGS: Bones: There is an acute subcapital fracture of the right femur. There is some slight displacement of the head on the neck. Soft tissues: No suspicious soft tissue calcifications or masses. IMPRESSION: The capital fracture with slight displacement and minimal compression. Dictated by: Clifton Chapman M.D. on 02/01/2017 at 20:09 Approved by: Clifton Chapman M.D. on 02/01/2017 at 20:09
--- NOTE | 2017-02-01 20:12 | DRSVH ---
PROCEDURE: X-RAY CHEST ONE VIEW, PORTABLE ([id number]) INDICATIONS: PRE-OP TECHNIQUE: One view of the chest was acquired. COMPARISON: [facility], CR, XR CHEST 1VW (PORTABLE), 12/18/2016, 18:06. FINDINGS: Surgical changes and devices: Dual-lead pacemaker from the left. Previous sternotomy thought to be fr om CABG procedure. Lungs and pleura: No pleural effusions or pneumothorax. Lungs are clear. Mediastinum: Mediastinal contours appear normal. Heart size is normal. Bones and chest wall: No suspicious bony lesions. Old posterior right rib fractures. Overlying soft tissues appear unremarkable. IMPRESSION: Acute disease is not seen in the supine AP chest. Dictated by: Clifton Chapman M.D. on 02/01/2017 at 20:10 Approved by: Clifton Chapman M.D. on 02/01/2017 at 20:10
[2017-02-01 20:30] VITALS: BP 123/63; PULSE 68; RESP 16; O2SAT 98
--- NOTE | 2017-02-01 20:34 | CONS ---
[address] [address] CONSULTATION REPORT PATIENT: YU LAIRD : 1925 MR#: [id number] ADMIT: 02/01/2017 JOB ID: [id number] DATE OF SERVICE: 02/01/2017 CHIEF COMPLAINT: Right hip pain. HISTORY OF PRESENT ILLNESS: The patient is an 89-year-old male who was caring a bucket of water out to his chickens when he fell, injuring his right hip. He was unable to ambulate after the fall. He had onset of severe acute pain in the hip and groin. He is normally relatively active and walks without ambulatory aids. Was recently in to see me in the office for evaluation of his knee pain. He lives at home. PAST MEDICAL HISTORY: Significant for history of syncope, sick sinus syndrome, TIA. PAST SURGICAL HISTORY: Includes a pacemaker placement. ALLERGIES: No known drug allergies. REVIEW OF SYSTEMS: Denies chest pain, shortness of breath, fevers, chills, nausea, vomiting, or other constitutional symptoms. Denies difficulty with his liver or kidneys. He does states that he has had some urinary difficulties in the past but is not currently having too much trouble as long as he takes the tamsulosin. His blood pressure 119/60, pulse rate 59, respirations 24. O2 sat was 98 on room air. General: Alert and cooperative, in some distress secondary to his right hip pain. The right hip is shortened and externally rotated. He has pain with any attempt at range of motion in the groin. His foot is warm, pink, and well perfused with dorsalis pedis pulse +2. Skin overlying the hip is intact, and the right lower extremity is shortened. X-rays demonstrate a right displaced femoral neck fracture. ASSESSMENT: Right displaced femoral neck fracture. PLAN: Recommend the patient be admitted to the hospital, have a Boucher catheter placed, and evaluation with the hospitalist for a preoperative evaluation and to determine whether or not he is ready for surgery. Recommend that we obtain pacemaker records and perform an evaluation if needed and plan for surgery tomorrow for a right hip hemiarthroplasty or possible total hip arthroplasty. Keep the patient n.p.o. after midnight.
[2017-02-01] MEDS ORDERED: Polyethylene Glycol (PEG) 17 Gm Powder PO PRN (21:05)
[2017-02-01] MEDS ORDERED: Ondansetron 2 mg/mL 2 mL Inj IVPUSH PRN (21:05)
[2017-02-01 21:58] LABS: INR 1.06 ratio
[2017-02-01] MEDS ORDERED: Lidocaine 2% 5 mL Urojet Topical Jelly Syringe TOPICAL ONE (22:05)
[2017-02-01] MEDS ORDERED: HYDROmorphone 1 mg/mL Inj IVPUSH PRN ×2 (22:10→22:28)
[2017-02-01 22:16] VITALS: BP 126/61; PULSE 68; RESP 14
[2017-02-01 22:17] VITALS: BP 134/53; PULSE 71; RESP 15; O2SAT 94
--- NOTE | 2017-02-01 22:18 | PCM.HPMED ---
Subjective Date of Service Feb 01, 2017 Primary Provider: Admitting Physician: Carmen Workman DO Primary Care Physician: Zoe Batista PA-C Attending Physician: Carmen Workman DO Admit Status: From the Emergency Department Chief Complaint: Right hip pain. History of Present Illness: Mr. Live Whitaker is an 89-year-old gentleman with past medical history of CAD status post CABG, SSS status post pacemaker insertion, hyperlipidemia, and GERD with recent TIA presenting with chief complaint of right hip and leg pain. He was carrying a heavy bucket of water out to water his chickens when he stumbled and fell. He was out in the yard following his fall for roughly 1.5 hours before his found him and call EMS. Patient reports that any motion produces cramping pain. He denies syncope, headache, fever, chills, nausea, vomiting, chest pain, shortness of breath. Of note he was difficult to interview and was very sleepy due to pain medications. In the ED: T - ?, HR - 59, RR - 22, BP - 111/56, 97 % RA. Imaging: Chest XRay - Acute disease is not seen in the supine AP chest. Femur XRay - No fracture of the right femur is identified. Limited view of the right femoral neck because of extreme external rotation and patient's inability to move the leg. Hip XRay - The capital fracture with slight displacement and minimal compression. Labs: Showed a mild increase in creatinine. Dr. Goodman was consulted and plans for hip surgical intervention tomorrow AM. NPO. Boucher cath in place. Patient received Lorazepam, zofran, Dilaudid in the ED. Review of Systems: A comprehensive review of systems was conducted with the patient and found to be negative except as above in the History of Present Illness. Allergies Coded Allergies: No Known Allergies (Unverified , 03/15/16) Home Medications Aspirin (Aspirin) 81 Mg Tablet 81 MG PO QAM Ketoconazole (Ketoconazole) 200 Mg Tablet 200 MG PO BID Lovastatin (Lovastatin) 40 Mg Tablet 40 MG PO HS Metoprolol Succinate ER (Metoprolol Succinate ER) 25 Mg Tab.er.24h 25 MG PO QAM [place] 3,6,9 Combination No.7 ([place] Dha) 92 Mg (43 Mg-22 Mg-10 Mg-17 Mg) Tab.chew 1 TABLET PO QID Omeprazole (Omeprazole) 20 Mg Capsule.dr 20 MG PO QAM Tamsulosin (Flomax) 0.4 Mg Capsule 0.4 MG PO HS Ubidecarenone/Vitamin E Mixed ([place]-Qyn E 100 mg-10 Unit Sfg) 100 Mg-10 Unit Capsule 2 EACH PO QAM Scheduled PRN Nitroglycerin SL (Nitrostat) 0.4 Mg Tab.subl 0.4 MG SL Q5MIN PRN PRN For Chest Pain PMH Hyperlipidemia BPH CAD status post CABG Osteoarthritis Sick sinus syndrome Complete heart block status post pacemaker insertion 2015 Surgical History Back fusion in [address] Family History Family history of colon cancer in brother High cholesterol and high blood pressure in mom and dad Social History Hx Alcohol Use: No Hx Substance Use: No Smoking Status: Former Smoker Exam Vital Signs Vital Sign - Last Date Time Temp Pulse Resp B/P Pulse Ox O2 Delivery O2 Flow Rate FiO2 02/01/17 19:27 59 24 119/60 98 Room Air Exam General: Elderly male lying in bed in no acute distress following pain medications, difficult to arouse, Well-developed. Thin. Inappropriately interactive, slow to respond and distracted. Dishelved with dirty nails. HEENT: Normocephalic, atraumatic. External ears without defect. Pupils equal, round, minimally responsive, not pinpoint or dilated. Oropharynx free of erythema with moist mucosa. Normal dentition. Cardiovascular: Mildly tachycardic rate with normal rhythm with no murmurs, rubs , or gallops appreciated Pulmonary: Clear to auscultation bilaterally with no crackles, wheezes, or rhonchi. Normal respiratory effort with no use of accessory muscles. Abdomen: Bowel tones present. Soft, nontender, nondistended. No hepatosplenomegaly or masses appreciated. Extremities: No clubbing, cyanosis, edema, or lymphadenopathy appreciated. Right hip pain. Skin: Normal temperature, turgor, and texture; no rash, ulcers, or subcutaneous nodules appreciated. Neurological: Cranial nerves grossly intact. Normal muscle strength, tone, and bulk. Reflexes, coordination, and sensory function within normal limits. No known gait impairment. Psychiatric: Difficult to arouse after pain medications. Lab and Diagnostics Result Diagram: 02/01/17184402/01/171844 X-Rays, CTs and MRIs X-RAY RIGHT FEMUR, TWO VIEWS IMPRESSION: No fracture of the right femur is identified. Limited view of the right femoral neck because of extreme external rotation and patient's inability to move the leg. Approved by: Clifton Chapman M.D. on 02/01/2017 at 19:30 X-RAY RIGHT HIP COMPLETE, MINIMUM TWO VIEWS IMPRESSION: The capital fracture with slight displacement and minimal compression. Approved by: Clifton Chapman M.D. on 02/01/2017 at 20:09 Cardiac Echo Impressions Echocardiogram Report 12/19/2016 Interpretation Summary The left ventricle is normal in size. The ejection fraction is estimated to be 55-60%. Apical wall motion abnormality may reflect pacemaker activation. Assessment of diastolic parameters indicates a relaxation abnormality of the left ventricle, consistent with normal filling pressures. There is a pacemaker lead in the right ventricle. There is moderate to severe tricuspid regurgitation. Right ventricular systolic pressure is estimated to be 34 mmHg plus the clinically estimated CVP which cannot be estimated on this exam. The right ventricle is moderate to severely dilated. Right ventricular systolic function is moderately reduced. Injection of contrast documented no interatrial shunt. Moderate AAA measuring 3.5 cm. No other echocardiographic abnormalities seen. Compared with the prior exam there are no significant changes. The RV size and function are similar and I would read the prior exam as showing moderately severe RV enlargement and moderate RV dysfunction. No obvious etiology for the patients TIA is noted on this exam. Additional Diagnostics: Device check. 11/10/2016 02:30 PM Page: 06/27 Test done via remote monitor. Battery and lead parameters are WNL. Appropriate Rate Histogram with 63% Atrial Pacing and 66% Ventricular Pacing. 27 AMS episode in which no recordings were made. AT/AF [place] <1%. no history of AF. Next check in 3 months. Linda Loredo, MARIZA,BS Assessment & Plan Mr. Live Whitaker is an 89-year-old gentleman with past medical history of CAD status post CABG, SSS status post pacemaker insertion, hyperlipidemia, and GERD with recent TIA presenting with chief complaint of right hip and leg pain. He is admitted for Right femoral neck fracture. Right Capital fracture with slight displacement, present on admission. Active. - Imaging as above. - Dr. Goodman with orthopedics plans on intervention tomorrow. "Right hip hemiarthroplasty or possible total hip arthroplasty." - NPO. Boucher in place. - PT/INR ordered. - ECHO as above. - Recent interrogation of pacemaker wnl - as above. - Continue IV Dilaudid PRN pain. Acute on Chronic Kidney injury, present on admission. Active. - Baseline ~ 1.3, Currently Creatinine 1.92 on admission. - IV NS @ 75ml/hr. Coronary artery disease, History of CABG - Patient received home ASA earlier in the day. Will hold tomorrow. - Patient received home Sick Sinus Syndrome with permanent pacemaker. - Recent interrogation of pacemaker wnl - as above. - Continue home Metoprolol succinate 25 mg dialy. Hyperlipidemia - Lipid panel ordered. - Continue home Lovastatin 40 mg HS. GERD - Continue home omeprazole. History of recent TIA - Not on anticoagulation. Just ASA. BPH - Continue home Tamsulosin Acetaminophen for mild pain when necessary. Bowel regimen Senna and MiraLAX scheduled and PRN. Zofran when necessary for nausea and vomiting. SubQ heparin held for now. SCDs in place. High-risk medications: IV Dilaudid. Patient Status: Patient is admitted under inpatient status with expected length of stay greater than 2 midnights due to severity of presenting symptoms, risk of adverse event, and complexity of treatment plan. Pain Evaluation: Adequate Pain Control Resuscitation Status: CPR: Attempt Resuscitation Attending Statement The patient was seen and examined together with house staff on 02/01/2017 and I agree with the history, exam and plan as outlined in the note above. JESSE LUZ DO Feb 01, 2017 21:33 Carmen Workman DO Feb 02, 2017 04:46
[2017-02-01 23:05] VITALS: BP 120/70; PULSE 70; RESP 14; O2SAT 94
[2017-02-01] MEDS: 0.9% Sodium Chloride 1,000 ML IV SCH (23:45)
[2017-02-02] VITALS (16 sets, daily range): BP systolic 93–106; BP diastolic 44–65; PULSE 53–75; RESP 16–24; O2SAT 88–100
--- NOTE | 2017-02-02 01:42 | NUR ---
admit pt arrived to [facility] room 1005 at 2300 via gurney. he was transferred to bed with sliding board. pt received dilaudid and ativan in ED per report. he awakens easily to voice, nods his head to questions but otherwise falls quickly back asleep. unable to complete admit or orient pt to room at this time. VS WNL. 02 is 92% on RA, however pt sleeping deeply and showing signs of LIBORIO, 02 dropping down into the mid 80s at times. pt was placed on a [employer] to monitor and 2L of oxygen. currently his 02 saturation is 100% on 2L of 02. R leg is externally rotated and shortened. foot is pink with good cap refill. [place] patent and draining to gravity. will attempt to complete admit when pt is more awake. bed in low position, call light within reach. care continues.
[2017-02-02 06:04] LABS: BASOPHILS % (AUTO) 0.2 % (0-3); EOSINOPHILS % (AUTO) 2.8 % (0-5); MONOCYTES % (AUTO) 9.6 % (4-12); Mean Corpuscular Volume 95.3 fL (81-100); NEUTROPHILS % (AUTO) 68.3 % (40-74); Platelet Count 87 bil/L (150-400)
[2017-02-02 06:44] LABS: INR 1.09 ratio
[2017-02-02] MEDS: MeTOProlol XL 25 mg ER24 Tablet PO SCH (09:49)
--- NOTE | 2017-02-02 09:50 | NUR ---
HR AM Metoprolol held, heart rate has not gone above 63 yet today. Currently at 60. BP was 104/65. Continue to monitor.
[2017-02-02] MEDS ORDERED: CeFAZolin 2 Gm/50 mL D5W Duplex Bag IV ONE ×2 (10:30→15:51)
[2017-02-02] MEDS ORDERED: Tranexamic Acid Inj 1,000 MG in 0.9% Sodium Chloride 100 ML IV ONE (10:30)
[2017-02-02] MEDS ORDERED: Vancomycin Dose per Pharmacist XX SCH (10:30)
[2017-02-02] MEDS ORDERED: CeFAZolin Inj 2 GM in IV Premix 1 EACH IV ONE (10:50)
[2017-02-02] MEDS ORDERED: Vancomycin Inj 1,250 MG in 0.9% Sodium Chloride 250 ML IV ONE (10:50)
[2017-02-02] MEDS: Tranexamic Acid Inj 1,000 MG in 0.9% Sodium Chloride 100 ML IV SCH ×3 (11:10→17:03)
[2017-02-02] MEDS ORDERED: FISH12002 PO (11:18)
[2017-02-02] MEDS ORDERED: fentaNYL-PF 50 mCg/mL 2 mL Inj ONE (11:47)
[2017-02-02] MEDS ORDERED: EPHEDrine/NS 5 mg/mL 5 mL Syringe ONE (11:47)
[2017-02-02] MEDS ORDERED: Phenylephrine/NS 100 mCg/mL 10 mL Syringe IVPUSH ONE (11:47)
[2017-02-02] MEDS: 0.9% Sodium Chloride 1,000 ML IV SCH ×2 (13:38→20:16)
[2017-02-02] MEDS ORDERED: Lactated Ringer's 1,000 ML IV ONE (14:34)
--- NOTE | 2017-02-02 14:53 | NUR ---
Social Work- Initial Assessment/ Multidisciplinary Rounds Data: See Initial Assessment and Advance Directive Intervention for additional information. Pt discussed in rounds. Pt to OR today, likely. Pt is not ready for discharge at this time. Pt will likely need SNF at discharge, SW will follow for any orders received. Pt is a 89 year old male admitted for right femoral neck fracture per H&P. Pt's insurance is [employer] and [employer]. Pt's PCP is Zoe Batista PA-C. Pt's readmit risk score is not listed at this time. SW met with pt, , and daughter at bedside regarding discharge plan, SW role explained. Pt alert and oriented x3. Pt's capacity for self-care assessed. Pt resides in [place] in a home with his spouse. Pt is independent with ADLs and self-care. Pt uses no DME at baseline. Pt drives. Pt has no history with HH services. Pt has no history with SNF services. Pt has no DPOA on file and SW requested that pt bring in copy of DPOA. Pt's family reports that they have family that work at [facility] and if pt needs a SNF they would want him to d/c there. SW informed them of order process but will relay information. SW provided Discharge planning Checklist and requested that pt contact [facility] if needs identified. SW provided phone number and plan on whiteboard. All updated and agreeable. SW will continue to follow. Assessment: Pt who is independent at baseline but who may require SNF at d/c Plan: SW is following for SNF orders. PT evaluation pending surgery. SW continues to follow. DIANDRA Vega Addendum: 02/02/17 at 1458 by ANGELES GARCIA Amended: Links added.
--- NOTE | 2017-02-02 15:11 | PCM.PNMED ---
Subjective Date of Service Feb 02, 2017 Subjective Denies any new issues/complaints Exam Vital Signs Vital Sign - Last Date Time Temp Pulse Resp B/P Pulse Ox O2 Delivery O2 Flow Rate FiO2 02/02/17 14:12 36.1 53 18 99/54 99 Nasal Cannula 2.00 Intake and Output 02/01/17 02/01/17 02/02/17 Cumulative From/Thru 15:00 23:00 07:00 02/01/17 18:15 - 02/02/17 06:15 Intake Total 470 ml 470 ml Output Total 250 ml 700 ml 950 ml Balance -250 ml -230 ml -480 ml Intake Oral 0 ml 0 ml IV Total 470 ml 470 ml Output Urine Total 250 ml 700 ml 950 ml # Bowel Movements 0 0 General: Alert, Cooperative, No Acute Distress Head: Normal Eyes: Scleral Anicteric Mouth: Mucous Membr Moist/[place] Neck: Supple Chest & Lungs: Chest Wall Normal, Clear to auscultation & percussion Cardiovascular: Regular Rate/Rhythm Abdomen: Non-tender, Non-distended, Normoactive bowel tones, Soft Extremities: No cyanosis/clubbing/edma bilat Neurological: Grossly Neurologically Intact, Normal Speech IVs and Medications Medications Reviewed: Medications were reviewed in detail Lab and Diagnostics Result Diagram: 02/02/1751902/02/17 0520 X-Rays, CTs and MRIs X-RAY RIGHT FEMUR, TWO VIEWS IMPRESSION: No fracture of the right femur is identified. Limited view of the right femoral neck because of extreme external rotation and patient's inability to move the leg. Approved by: Clifton Chapman M.D. on 02/01/2017 at 19:30 X-RAY RIGHT HIP COMPLETE, MINIMUM TWO VIEWS IMPRESSION: The capital fracture with slight displacement and minimal compression. Approved by: Clifton Chapman M.D. on 02/01/2017 at 20:09 Cardiac Echo Impressions Echocardiogram Report 12/19/2016 Interpretation Summary The left ventricle is normal in size. The ejection fraction is estimated to be 55-60%. Apical wall motion abnormality may reflect pacemaker activation. Assessment of diastolic parameters indicates a relaxation abnormality of the left ventricle, consistent with normal filling pressures. There is a pacemaker lead in the right ventricle. There is moderate to severe tricuspid regurgitation. Right ventricular systolic pressure is estimated to be 34 mmHg plus the clinically estimated CVP which cannot be estimated on this exam. The right ventricle is moderate to severely dilated. Right ventricular systolic function is moderately reduced. Injection of contrast documented no interatrial shunt. Moderate AAA measuring 3.5 cm. No other echocardiographic abnormalities seen. Compared with the prior exam there are no significant changes. The RV size and function are similar and I would read the prior exam as showing moderately severe RV enlargement and moderate RV dysfunction. No obvious etiology for the patients TIA is noted on this exam. Additional Diagnostics Device check. 11/10/2016 02:30 PM Page: 06/27 Test done via remote monitor. Battery and lead parameters are WNL. Appropriate Rate Histogram with 63% Atrial Pacing and 66% Ventricular Pacing. 27 AMS episode in which no recordings were made. AT/AF Dameron <1%. no history of AF. Next check in 3 months. Linda Loredo, MED,BS Assessment & Plan 89-year-old gentleman with past medical history of CAD status post CABG, SSS status post pacemaker insertion, hyperlipidemia, and GERD with recent TIA presenting with chief complaint of right hip and leg pain. He is admitted for Right femoral neck fracture. # Acute right capital fracture with slight displacement, present on admission. Active. - Appreciate ortho consult. Will followup with surgery - Plan for surgery later today - Continue with supportive care. Change IV Dilaudid to IV Morphine prn and followup. # Acute on Chronic Kidney injury, present on admission. Improving - Baseline ~ 1.3 - Improving with IVF - Continue with IVF and followup # Coronary artery disease, History of CABG - Continue with home meds # Sick Sinus Syndrome with permanent pacemaker. - Recent interrogation of pacemaker within normal - Continue home Metoprolol succinate 25 mg daily. # Hyperlipidemia - Continue home Lovastatin 40 mg HS. # GERD - Continue home omeprazole. # History of recent TIA - Not on anticoagulation. Just ASA. # BPH - Continue home Tamsulosin Dispo: 2-3 days Resuscitation Status: CPR: Attempt Resuscitation Chu Leslie Feb 02, 2017 15:11
--- NOTE | 2017-02-02 15:14 | NUR ---
SHELTER TRANSFER : Gave access to [facility] per HYDRO ELECTRIC STATION OPERATOR and MD orders
[2017-02-02] MEDS ORDERED: Tranexamic Acid 100 mg/mL 10 mL Inj ONE (15:51)
[2017-02-02] MEDS ORDERED: 0.9% Sodium Chloride 200 ML ONE (15:52)
--- NOTE | 2017-02-02 16:03 | PCM.HPANE ---
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) Medications Blood Thinner: Aspirin Reported Medications Fish Oil/Borage/Flax/Om3,6,9#1 ([place] 3-6-9 1,200 mg Softgel)1,200 Mg Capsule1, 200 Mg PO BID 02/02/17 Tamsulosin (Flomax)0.4 Mg Capsule0.4 Mg PO HS Ref 0 12/18/16 Metoprolol Succinate ER 25 Mg Tab.er.24h25 Mg PO QAM Ref 0 12/18/16 Ketoconazole 200 Mg Dizard964 Mg PO BID 12/18/16 Omeprazole 20 Mg Capsule.dr20 Mg PO QAM Ref 0 03/12/16 Nitroglycerin SL (Nitrostat)0.4 Mg Tab.subl0.4 Mg SL Q5MIN PRN For Chest Pain # 1 BOTTLE 03/12/16 Lovastatin 40 Mg Qelegl10 Mg PO HS #30 TABLET Ref 0 03/12/16 Ubidecarenone/Vitamin E Mixed (Lkz41-Rxr E 100 mg-10 Unit Sfg)100 Mg-10 Unit Capsule1 Tab PO QAM 03/12/16 Aspirin 81 Mg Csaluv64 Mg PO QAM Ref 0 03/12/16 Discontinued Reported Medications Triamcinolone Acet (Triamcinolone Acetonide Cream)1 Applic/0.25 Gm Cr1 Applic EXT BID PRN RASH #60 GM Ref 0 12/18/16 History History of ENT Problems?: No HEENT History: Positive for:: Cataracts (cataract removal bilateral eyes) Hearing Problem (is not wearing at this time.) Denies:: Abnormal Airway Difficult Intubation Dysphagia Denture Type: None Teeth Condition: Within Normal Limits Hx of Heart Problems?: Yes Cardiovascular History: Positive for:: Chest Pain Edema Pacemaker (have cardiac consent) Valvular Heart Disease Denies:: Cardiac Surgery (cabg) Congestive Heart Failure Heart Murmur Hypertension Irregular Heartbeat Thrombophlebitis Hx of Respiratory Problem?: No Respiratory History: Denies:: Asthma COPD Chest Surgery Dyspnea Emphysema Hemoptysis Pneumonia Tuberculosis Hx Neurologic Problems?: Yes Neurological History: Positive for:: CVA (TIA present on admission) Denies:: Dementia Dizziness Headaches Seizures Hx of GI Problems?: Yes Hx of Problems?: No Genitourinary History: Denies:: HX of Hemodialysis Kidney Stones Urinary Tract Infection HX of Peritoneal Dialysis: No Male Hx: Positive for:: Prostate Problems Denies:: Scrotal Mass Testicular Surgery Hx Musculoskeletal Problems?: Yes Musculoskeletal History: Positive for:: Back Injury (back surgery) Denies:: Joint Replacement Musculoskeletal Trauma Hx of Psycho/Social Problems?: No Psycho Social History: Positive for:: Anxiety Denies:: Bipolar Disorder Hx Depression Suicide Attempt Hx Surgeries?: Yes (lower back surgery 1949') Hx Any Other Health Problems?: Yes Other History: Denies:: Cancer Hospitalization Thyroid Disease History Blood Transfusions: Positive for:: Accept Blood Products? Denies:: Blood Transfuse Reaction Blood Transfusions Hx Diabetes: No Hx Alcohol Use: NoHx Substance Use: No Smoking Status: Former Smoker Have You Smoked inLast 12 mo: No Stop/Bang Treated for Sleep Apnea?: No Do You Have a CPAP Machine?: No S-Snoring: Do You Snore Loudly: Yes T-Tired: feel tired, fatigued: No O-Obsered: Observed not breath: Yes P-Blood Pressure: treated: Yes B- Body Mass Index > 35 kg/m2: No A- Age over 50: Yes N- Neck Large Circumference: No G- Gender Male: Yes LIBORIO Total Score: 4 Risk Assessment Category Category 1A: Patient has history of documented sleep apnea, and HAS NOT received any narcotic, sedative or anesthesia administration during this stay. Category 1B: Patient has history of documented sleep apnea, and HAS received any narcotic , sedative or anesthesia administration during this stay Category 2: Patient has SUSPECTED Obstructive Sleep Apnea, and HAS received any narcotic , sedative or anesthesia administration during this stay. Category 3: Patient has SUSPECTED Obstructive Sleep Apnea and HAS NOT received narcotic, sedative or anesthesia administration during this stay. Category 4: Outpatient in Procedural Areas with known sleep apnea or who screen positive for High Risk via the STOP/BANG questionnaire. Exam Exam Vital Signs Vital Signs Date Time Temp Pulse Resp B/P Pulse Ox O2 Delivery O2 Flow Rate FiO2 02/02/17 14:12 36.1 53 18 99/54 99 Nasal Cannula 2.00 02/02/17 08:10 36.9 63 18 104/65 99 Nasal Cannula 2.00 General Appearance: Alert, Cooperative, No Acute Distress HEENT/AIRWAY: MP 2, Neck Movement (from, vazquez), Mouth Opening (wnl) Lungs: Clear to Auscultation Heart: Exam Unremarkable Meds/Labs/Diagnostics Admission Meds Current Medications Ondansetron HCl (Zofran Inj) 8 mg ONCE ONCE IVPUSH Last administered on 19:22; Start 02/01/17 at 18:55; Stop 02/01/17 at 18:56; Status DC Lorazepam 1 mg 1 mg ONCE ONCE IVPUSH Last administered on 02/01/17 19:49; Start 02/01/17 at 19:30; Stop 02/01/17 at 19:31; Status DC Sodium Chloride (Normal Saline) 1,000 ml @ 75 mls/hr [id number] IV Last administered on 02/02/17 13:38; Start 02/01/17 at 21:40 Labs Test 02/01/17 18:45 02/02/17 05:20 Hold Purple Top Tube Received (Received) Hold Blue Top Tube Received (Received) Hold [place] Top Tube Received (Received) White Blood Count 6.4th/mm3 (3.8-10.1) Red Blood Count 3.44mil/mm3 (4.40-5.80) Hemoglobin 11.0g/dL (13.8-17.2) Hematocrit 32.8% (41.0-50.0) Mean Corpuscular Volume 95.3fL (81-100) Mean Corpuscular Hemoglobin 32.0pg (27.0-35.0) Mean Corpuscular Hemoglobin Concent 33.5% (32.0-37.0) Red Cell Distribution Width 15.0% (12.3-15.4) Platelet Count 87bil/L (150-400) Neutrophils (%) (Auto) 68.3% (40-74) Lymphocytes (%) (Auto) 18.6% (14-46) Monocytes (%) (Auto) 9.6% (4-12) Eosinophils (%) (Auto) 2.8% (0-5) Basophils (%) (Auto) 0.2% (0-3) Prothrombin Time 11.7sec (8.1-12.5) Prothromb Time International Ratio 1.09ratio Sodium Level 141mEq/L (134-144) Potassium Level 5.2mEq/L (3.5-5.2) Chloride Level 106mEq/L (97-108) Carbon Dioxide Level 21mmol/L (18-29) Blood Urea Nitrogen 28mg/dL (8-27) Creatinine 1.52mg/dL (0.76-1.27) Estimat Glomerular Filtration Rate 46mL/min (>59) Glucose Level 100mg/dL (60-99) Calcium Level 8.4mg/dL (8.5-10.1) Total Bilirubin 0.9mg/dL (0.0-1.2) Aspartate Amino Transf (AST/SGOT) 17U/L (0-50) Alanine Aminotransferase (ALT/SGPT) 15U/L (0-44) Alkaline Phosphatase 51U/L (25-160) Total Protein 5.5g/dL (6.4-8.4) Albumin 3.6g/dL (3.4-5.0) Plan Impression Patient chart reviewed, patient interviewed and anesthestic plan with risks, benefits, and alternatives discussed, and informed consent obtained. ASA Physical Status: ASA2 Mod Systemic Disease Anesthetic Plan: SAB Bene/Risks/Altern/Consents: Yes HP Complete Prior to Induction: Yes Skinny Tirado MD Feb 02, 2017 16:03
--- NOTE | 2017-02-02 16:12 | NUR ---
Off unit Pt to OR at 1536, report called to ROUGH ROUNDER MACHINE. Pt VSS, CARRERO, A&O x 3. Pain well controlled 09/03, unless pt is moving.
[2017-02-02] MEDS ORDERED: Dexamethasone 4 mg/mL Inj IVPUSH PRN (16:15)
[2017-02-02] MEDS ORDERED: Atropine 0.4 mg/mL Inj IVPUSH PRN (16:15)
[2017-02-02] MEDS ORDERED: Labetalol 5 mg/mL 4 mL Inj IV PRN (16:15)
[2017-02-02] MEDS ORDERED: EPHEDrine Sulfate 50 mg/mL Inj IVPUSH PRN (16:15)
[2017-02-02] MEDS ORDERED: Phenylephrine 10,000 mCg/mL Inj IVPUSH PRN (16:15)
[2017-02-02] MEDS ORDERED: Lactated Ringer's 1,000 ML IV SCH (16:15)
[2017-02-02] MEDS ORDERED: HYDROmorphone 1 mg/mL Inj IVPUSH PRN ×2 (16:15→18:50)
[2017-02-02] MEDS ORDERED: hydrALAZINE 20 mg/mL Inj IVPUSH PRN (16:15)
[2017-02-02] MEDS ORDERED: fentaNYL-PF 50 mCg/mL 2 mL Inj IVPUSH PRN (16:15)
[2017-02-02] MEDS ORDERED: Lactated Ringer's 500 ML IV PRN (16:15)
[2017-02-02] MEDS ORDERED: Ondansetron 2 mg/mL 2 mL Inj IVPUSH PRN (16:15)
[2017-02-02] MEDS ORDERED: Bupivacaine Liposome 1.3% 20 mL Inj ONE (16:16)
--- NOTE | 2017-02-02 18:10 | NUR ---
PTwent to OR and his [place] cath didnt get emty he left OSC, OR nurse will empty at end of the shift Addendum: 02/02/17 at 1816 by JAZMYN VELARDE CNA Amended: Links added.
[2017-02-02] MEDS ORDERED: 0.9% Sodium Chloride 10 mL Inj INFILTRATE ONE (18:19)
[2017-02-02] MEDS ORDERED: Bupivacaine Liposome 1.3% 20 mL Inj INFILTRATE ONE (18:19)
[2017-02-02] MEDS ORDERED: Bupivacaine-MPF 0.5% W/EPI 30 mL Inj INFILTRATE ONE (18:19)
[2017-02-02] MEDS ORDERED: diphenhydrAMINE 25 mg Capsule PO PRN (18:50)
[2017-02-02] MEDS ORDERED: Ketorolac 15 mg/mL Inj IVPUSH PRN (18:50)
[2017-02-02] MEDS ORDERED: Magnesium Hydroxide 10 mL Oral Concentration PO PRN (18:50)
[2017-02-02] MEDS ORDERED: Polyethylene Glycol (PEG) 17 Gm Powder PO PRN (18:50)
[2017-02-02] MEDS ORDERED: Acetaminophen IV 1,000 MG in IV Premix 1 EACH IV ONE (18:50)
--- NOTE | 2017-02-02 19:21 | OP ---
[address] [address] OPERATIVE REPORT PATIENT: YU LAIRD : 1925 MR#: [id number] ADMIT: 02/01/2017 JOB ID: [id number] DATE OF SURGERY: 02/02/2017 SURGEON: Grady Darden DO PREOPERATIVE DIAGNOSIS(ES): Right femoral neck fracture. POSTOPERATIVE DIAGNOSIS(ES): Right femoral neck fracture. PROCEDURE: Right total hip arthroplasty. INDICATIONS: The patient is an 89-year-old male who was quite active and normally walks without ambulatory aids and was carrying water out to his chickens when he fell, sustaining a right femoral neck fracture. We discussed treatment options for this including hemiarthroplasty and total hip arthroplasty and he wished to proceed with a total hip arthroplasty. We discussed the risks, benefits, and possible complications of surgery including, but not limited to injury to nerves and vessels, infection, bleeding, incomplete relief of symptoms, stiffness, need for additional procedures, deep venous thrombosis. The patient had good understanding. All questions were answered. He wished to proceed. A internet marketing assistant was required for successful completion of this procedure. PROCEDURE IN DETAIL: The patient was brought to the operating room. He was given a preoperative antibiotic, 1 g TXA preoperatively and a spinal anesthetic. He was placed comfortably into the lateral decubitus position. The right hip was sterilely prepped and draped. An incision was made centered over the trochanter in line with the femur. Dissection was carried through the subcutaneous tissue and the iliotibial band was incised in line with the skin incision. The Charnley retractor was then placed. A split was then made in the gluteus medius between the junction of the anterior one-third and posterior two-thirds, and Hohmann retractors were placed on either side of the femoral neck. An anterior sleeve of tissue was then released off of the femur, leaving a cuff of tissue for repair. This was taken to a point just distal to vastus tubercle. A small triangular portion of capsule was removed and the fracture was encountered. A provisional neck cut was made about a fingerbreadth above the level of lesser trochanter and the femoral head fragment was removed and sized. The femur was then prepared beginning with a box osteotome. This was broached sequentially up to a size 8, which had excellent fit and rotational stability. Calcar planer was used to smooth the top of the femur. Attention was then directed towards the acetabulum. Anterior and posterior acetabular retractors were placed. The labrum was removed and the acetabulum was then carefully reamed beginning with a 49 reamer. This was reamed sequentially up to a 57. With the 57, he was noted to have some softening medially and I felt that we were very close to a protrusio of the medial wall. Therefore, I elected to stop at the 57 and trial the 58 cup which had excellent fit. I then irrigated the acetabulum and bone grafted the central portion, impacted a DePuy [place] 58, three-hole cup into position. Care was taken to ensure the appropriate abduction and anteversion. I elected to secure it with two superior screws; one more anterior, one more posterior, both of which had good fixation. We then performed numerous trials of the hip and unfortunately the hip was fairly unstable and we had a very difficult time obtaining stability from posterior dislocation. Ultimately we elected to use a 36 x 58, 10 degree liner with the liner 10 degree portion posteriorly, a high offset size 8 DePuy Tri-Lock stem, and a 12.5, 36 head. This combination allowed for excellent range of motion, good stability and was relatively close with regard to leg length. The wound was irrigated and then closed with #5 Ethibond to repair the capsule. The gluteus medius was repaired with #5 Ethibond and #1 Surgilon. The iliotibial band was repaired with 0-Vicryl. The subcu was closed with 2-0 Vicryl and the skin was closed with a running subcuticular 3-0 V-Loc suture. The mixture of saline, Exparel, and Marcaine was added as an adjunct local anesthetic. Sterile dressings were applied. Patient tolerated the procedure well. BLOOD LOSS: 250 cc. POSTOPERATIVE PROTOCOL: Have the patient remain partial weightbearing for a period of 4-6 weeks and avoid any internal rotation of the hip as well as avoiding flexion past 90 degrees and avoiding active abduction. Will plan to use aspirin 325 b.i.d. for DVT prophylaxis.
--- NOTE | 2017-02-02 19:51 | DRSVH ---
PROCEDURE: X-RAY PELVIS W/LAT HIP (RT) ([id number]) INDICATIONS: post operation TECHNIQUE: AP pelvis and lateral view of the right hip acquired. COMPARISON: [facility], CR, XR HIP 2VW RT, 02/01/2017, 18:36. [facility], CR , XR FEMUR 2VW RT, 02/01/2017, 18:36. FINDINGS: Bones: Patient is status post right hip arthroplasty, with hardware components in expected positions . The hip joint appears congruent. The visualized bony structures appear intact. Soft tissues: Overlying postoperative changes are noted. No suspicious soft tissue densities. IMPRESSION: Expected postsurgical change for right hip arthroplasty. Dictated by: Snow Camara MD, PhD on 02/02/2017 at 19:48 Approved by: Snow Camara MD, PhD on 02/02/2017 at 19:50
[2017-02-02] MEDS: Senna-Docusate 8.6-50 mg Tablet PO SCH (20:52)
--- NOTE | 2017-02-02 23:17 | PCM.ANEP1 ---
Post Anesthesia PACU Phase 1 Assessment Date of Service: Feb 02, 2017 Vital Signs Vital Signs Date Time Temp Pulse Resp B/P Pulse Ox O2 Delivery O2 Flow Rate FiO2 02/02/17 20:20 Supplement Oxygen 02/02/17 20:10 36.1 68 20 97/57 98 Nasal Cannula 2.00 02/02/17 20:00 36.7 67 17 100/52 96 Nasal Cannula 2 02/02/17 19:50 67 21 94/45 97 Nasal Cannula 2 02/02/17 19:45 36.1 68 24 105/47 97 Nasal Cannula 2 02/02/17 19:40 70 19 101/48 97 Nasal Cannula 2 02/02/17 19:35 67 16 106/49 98 Nasal Cannula 3 02/02/17 19:30 67 17 101/53 98 Nasal Cannula 3 02/02/17 19:25 70 18 105/47 98 Nasal Cannula 3 02/02/17 19:20 72 19 95/48 98 Nasal Cannula 3 02/02/17 19:15 70 19 102/47 96 Nasal Cannula 3 02/02/17 19:10 71 19 93/48 96 Nasal Cannula 3 02/02/17 19:07 36.7 75 17 98/44 88 Room Air Anesthetic Administered: SAB Level of Alertness: Sleepy, easy to arouse CARRERO's with Equal Strength: No (Decreased strength on R surgical leg) Pain: No Pain Scale Score: 3 Nausea or Vomiting: No CV Function & Hydration Stable: Yes Airway Device: none Oxygen Delivery: Nasal Cannula Lungs: Clear to Auscultation Dermatome Level: Full Sensation PACU Phase 2 Assessment Complications: No Follow up Care: No Patient Instructions Provided: N/A Pankaj Sanchez MD Feb 02, 2017 23:17
[2017-02-03 00:25] VITALS: BP 104/61; PULSE 72; RESP 20; O2SAT 97
[2017-02-03] MEDS: Sodium Chloride LOK Flush 10 mL Syringe IV SCH ×3 (00:30→17:28)
[2017-02-03] MEDS: CeFAZolin Inj 2 GM in IV Premix 1 EACH IV SCH ×2 (00:52→09:53)
--- NOTE | 2017-02-03 03:43 | NUR ---
Post op Patient returned to floor at approx 2000. Patient was drowsy but easy to arouse and is A&OX3. Denies any N/V, pain, CP, or SOB. 2L O2 via NC worn and is maintaining sats >92%. NS is running at 100cc with int abx. Have been able to advance diet without troubles. Boucher is draining yellow urine to gravity, and hip wedge is in place. Chart returned with patient. Will continue to monitor and continue Q1 hour checks.
[2017-02-03] MEDS: 0.9% Sodium Chloride 1,000 ML IV SCH (04:37)
[2017-02-03] MEDS: HYDROcodone-APAP 5-325 mg Tablet PO PRN ×4 (04:41→22:48)
[2017-02-03 05:15] VITALS: BP 122/67; PULSE 82; RESP 20; O2SAT 98
[2017-02-03 05:33] LABS: BASOPHILS % (AUTO) 0.1 % (0-3); EOSINOPHILS % (AUTO) 2.3 % (0-5); MONOCYTES % (AUTO) 5.4 % (4-12); Mean Corpuscular Volume 95.6 fL (81-100); NEUTROPHILS % (AUTO) 83.5 % (40-74); Platelet Count 88 bil/L (150-400)
--- NOTE | 2017-02-03 06:02 | NUR ---
Respiratory As the night has progressed, patient has presented with an increased work of breathing. Patient denies any SOB, however lung sounds have become more coarse. Night hospitalist notified and has ordered for fluids to be Dc'd. Patient is maintaining o2 sats > 92% on 2Lo2 via NC. INSULATION MACHINE OPERATOR applied. Will continue to monitor closely.
[2017-02-03] MEDS: Alum-Mag Hydrox-Simeth 30 mL Suspension PO PRN ×3 (06:36→21:55)
--- NOTE | 2017-02-03 08:28 | PCM.PNORTH ---
Subjective Date of Service: Feb 03, 2017 Visit Information: Reason for Visit Right Femoral Neck Fracture Surgery/Surgery Date right hip hemiarthroplasty 02/02/2017 Post-Op Day # 1 Date of Admission: Feb 01, 2017 at 20:37 Hospital Day # Subjective Patient reports the hip feels a lot better today than it did yesterday. They would like to go to [facility] following the hospital stay for rehabilitation Postop General: No Shortness of Breath, No Chest Pain, Good Appetite Pain Management: PO, IV Push Objective Exam Objective Patient is seen sitting up in bed eating breakfast with his at bedside. Vital Signs and I/O Vital Sign - Last Date Time Temp Pulse Resp B/P Pulse Ox O2 Delivery O2 Flow Rate FiO2 02/03/17 05:15 37.0 82 20 122/67 98 Nasal Cannula 2.00 Intake and Output 02/02/17 02/02/17 02/03/17 Cumulative From/Thru 15:00 23:00 07:00 02/01/17 18:15 - 02/03/17 06:51 Intake Total 1910 ml 800 ml 3180 ml Output Total 1100 ml 700 ml 2750 ml Balance 810 ml 100 ml 430 ml Intake Oral 0 ml 800 ml 800 ml IV Total 1910 ml 2380 ml Output Urine Total 850 ml 700 ml 2500 ml Estimated Blood Loss 250 ml 250 ml # Bowel Movements 0 0 Lab & Micro Results Laboratory Tests Test 02/03/17 04:50 White Blood Count 7.0th/mm3 (3.8-10.1) Red Blood Count 3.19mil/mm3 (4.40-5.80) Hemoglobin 10.2g/dL (13.8-17.2) Hematocrit 30.5% (41.0-50.0) Mean Corpuscular Volume 95.6fL (81-100) Mean Corpuscular Hemoglobin 32.0pg (27.0-35.0) Mean Corpuscular Hemoglobin Concent 33.4% (32.0-37.0) Red Cell Distribution Width 14.9% (12.3-15.4) Platelet Count 88bil/L (150-400) Neutrophils (%) (Auto) 83.5% (40-74) Lymphocytes (%) (Auto) 8.1% (14-46) Monocytes (%) (Auto) 5.4% (4-12) Eosinophils (%) (Auto) 2.3% (0-5) Basophils (%) (Auto) 0.1% (0-3) Sodium Level 140mEq/L (134-144) Potassium Level 4.9mEq/L (3.5-5.2) Chloride Level 104mEq/L (97-108) Carbon Dioxide Level 23mmol/L (18-29) Blood Urea Nitrogen 25mg/dL (8-27) Creatinine 1.30mg/dL (0.76-1.27) Estimat Glomerular Filtration Rate 55mL/min (>59) Glucose Level 187mg/dL (60-99) Calcium Level 7.8mg/dL (8.5-10.1) Result Diagram: 02/03/1744902/03/17449 General Appearance: Alert, Oriented X3, Cooperative, No Acute Distress Extremities: Distal Pulses Palpable, No Compartment Syndrom Noted, Thigh & Calf Soft/Nontender Postop Sensory Motor: Distal Motor Intact, Distal Sensation Intact, NVI Distally SURGICAL WOUND : Wound Location/Description Right hip: Surgical Dressing is clean, dry and intact Incision General Appearance: No Direct Observation Activity: Activity per PT Catheters: Urethral 2 Way Boucher Assessment & Plan Impression POD #1 status post right hip hemiarthroplasty Problems: Plan Weightbearing: Partial weightbearing 50% on the right lower extremity with front wheeled walker DVT prophylaxis: aspirin 325 mg twice a day 6 weeks Physical therapy for transfers, progressive ambulation, therapeutic exercise Hip precautions: Anterior and posterior hip precautions Hip abduction pillow at night when sleeping. He knees a regular pillow between the knees when in bed during the day Wound care: Surgical dressing is clean, dry and intact. PA will change dressing on postop day 2 to [place] dressing Discharge plan: Discharge to SNF in 1-2 days. Patient's preference is [facility]. Follow-up plan: In 2 weeks at [facility] with PA for wound check and at [address] Darden with x-rays Pain Management: Tylenol IV, Toradol, [place] VTE Prophylaxis: SCDs, Other (aspirin) Resuscitation Status: CPR: Attempt Resuscitation RenfrowoRsalie Mi PA-C Feb 03, 2017 08:28
[2017-02-03] MEDS: MeTOProlol XL 25 mg ER24 Tablet PO SCH (08:30)
--- NOTE | 2017-02-03 09:05 | NUR ---
Evaluation completed. Please go to "Notes" then click on "Assessments and Notes" (bottom left corner of screen). Then select appropriate discipline tab on top of screen.
[2017-02-03 09:15] VITALS: BP 99/60; PULSE 76; RESP 14; O2SAT 98
[2017-02-03] MEDS: Senna-Docusate 8.6-50 mg Tablet PO SCH ×2 (09:31→20:58)
[2017-02-03 12:45] VITALS: BP 108/58; PULSE 80; RESP 14; O2SAT 92
--- NOTE | 2017-02-03 15:19 | PCM.PNMED ---
Subjective Date of Service Feb 03, 2017 Subjective Denies any new issues/complaints Exam Vital Signs Vital Sign - Last Date Time Temp Pulse Resp B/P Pulse Ox O2 Delivery O2 Flow Rate FiO2 02/03/17 12:45 36.8 80 14 108/58 92 Room Air 02/03/17 05:15 2.00 Intake and Output 02/02/17 02/02/17 02/03/17 Cumulative From/Thru 15:00 23:00 07:00 02/01/17 18:15 - 02/03/17 06:51 Intake Total 1910 ml 800 ml 3180 ml Output Total 1100 ml 700 ml 2750 ml Balance 810 ml 100 ml 430 ml Intake Oral 0 ml 800 ml 800 ml IV Total 1910 ml 2380 ml Output Urine Total 850 ml 700 ml 2500 ml Estimated Blood Loss 250 ml 250 ml # Bowel Movements 0 0 Exam General: Alert, Cooperative, No Acute Distress Head: Normal Eyes: Scleral Anicteric Mouth: Mucous Membr Moist/[place] Neck: Supple Chest & Lungs: Chest Wall Normal, Clear to auscultation bilat Cardiovascular: Regular Rate/Rhythm Abdomen: Non-tender, Non-distended, Normoactive bowel tones, Soft Extremities: No cyanosis/clubbing/edema bilat Neurological: Grossly Neurologically Intact, Normal Speech IVs and Medications Medications Reviewed: Medications were reviewed in detail Lab and Diagnostics Result Diagram: 02/03/1744902/03/17 045 X-Rays, CTs and MRIs X-RAY RIGHT FEMUR, TWO VIEWS IMPRESSION: No fracture of the right femur is identified. Limited view of the right femoral neck because of extreme external rotation and patient's inability to move the leg. Approved by: Clifton Chapman M.D. on 02/01/2017 at 19:30 X-RAY RIGHT HIP COMPLETE, MINIMUM TWO VIEWS IMPRESSION: The capital fracture with slight displacement and minimal compression. Approved by: Clifton Chapman M.D. on 02/01/2017 at 20:09 Cardiac Echo Impressions Echocardiogram Report 12/19/2016 Interpretation Summary The left ventricle is normal in size. The ejection fraction is estimated to be 55-60%. Apical wall motion abnormality may reflect pacemaker activation. Assessment of diastolic parameters indicates a relaxation abnormality of the left ventricle, consistent with normal filling pressures. There is a pacemaker lead in the right ventricle. There is moderate to severe tricuspid regurgitation. Right ventricular systolic pressure is estimated to be 34 mmHg plus the clinically estimated CVP which cannot be estimated on this exam. The right ventricle is moderate to severely dilated. Right ventricular systolic function is moderately reduced. Injection of contrast documented no interatrial shunt. Moderate AAA measuring 3.5 cm. No other echocardiographic abnormalities seen. Compared with the prior exam there are no significant changes. The RV size and function are similar and I would read the prior exam as showing moderately severe RV enlargement and moderate RV dysfunction. No obvious etiology for the patients TIA is noted on this exam. Additional Diagnostics Device check. 11/10/2016 02:30 PM Page: 06/27 Test done via remote monitor. Battery and lead parameters are WNL. Appropriate Rate Histogram with 63% Atrial Pacing and 66% Ventricular Pacing. 27 AMS episode in which no recordings were made. AT/AF [place] <1%. no history of AF. Next check in 3 months. Linda Loredo, MED,BS Assessment & Plan 89-year-old gentleman with past medical history of CAD status post CABG, SSS status post pacemaker insertion, hyperlipidemia, and GERD with recent TIA presenting with chief complaint of right hip and leg pain. He is admitted for Right femoral neck fracture. # Acute right capital fracture with slight displacement, present on admission. Active. - Post right total hip arthroplasty on 02/02/17 - Appreciate ortho consult. Will followup with surgery: - Weightbearing: Partial weightbearing 50% on the right lower extremity with front wheeled walker - DVT prophylaxis: aspirin 325 mg twice a day 6 weeks - Physical therapy for transfers, progressive ambulation, therapeutic exercise - Hip precautions: Anterior and posterior hip precautions - Hip abduction pillow at night when sleeping. He knees a regular pillow between the knees when in bed during the day - Wound care: Surgical dressing is clean, dry and intact. PA will change dressing on postop day 2 to [place] dressing - Follow-up plan: In 2 weeks at [facility] with PA for wound check and at [address] Darden with x-rays - Continue with supportive care. # Acute on Chronic Kidney injury, present on admission. Improving - Baseline ~ 1.3 - Improving with IVF - Continue with IVF and followup # Coronary artery disease, History of CABG - Continue with home meds # Sick Sinus Syndrome with permanent pacemaker. - Recent interrogation of pacemaker within normal - Continue home Metoprolol succinate 25 mg daily. # Hyperlipidemia - Continue home Lovastatin 40 mg HS. # GERD - Continue home omeprazole. # History of recent TIA - Not on anticoagulation. Just ASA. # BPH - Continue home Tamsulosin Dispo: [facility] 2-3 days VTE Prophylaxis: SCDs, Other (aspirin) VTE Mechanical Devices: Intermittant Pneumatic CD Resuscitation Status: CPR: Attempt Resuscitation Chu Leslie Feb 03, 2017 15:19
--- NOTE | 2017-02-03 15:57 | NUR ---
Social work note - Continued D/C planning [employer] met with pt - PT evaluation today recommended SNF for rehab. Pt states he wants a referral to [facility] - Pt's grand son works there. [employer] called [facility] - Spoke with Dayami who states that they are able to offer a bed. [employer] faxed [facility] and placed paperwork for transfer on chart. Plan: To [facility] SNF for rehab - (A) Chan with transfer by cabulance when medically stable. RYLAN FanSW
--- NOTE | 2017-02-03 18:22 | NUR ---
MObility Pt is A/O x3. On RA with 02 sats of 94%. Has minimal pain. Administered [place] 1 tablet for pain 4/10 at 1420 with good effect. Reports pain for remainder of shift is 2/10. Denies any nausea. Boucher discontinued today at 1000, voided 300 w/PVR of 89. Up to BSC/chair x1 today with 2p assist with FWW and maintaining 50% weight bearing RLE. Bulky dressing to right hip remains clean, dry and intact. No drainage. Tolerating heart healthy/ADA diet.
[2017-02-03 20:43] VITALS: BP 110/63; PULSE 91; RESP 18; O2SAT 94
[2017-02-03] MEDS: Ondansetron 2 mg/mL 2 mL Inj IVPUSH PRN (21:07)
[2017-02-04] MEDS: Sodium Chloride LOK Flush 10 mL Syringe IV SCH ×3 (01:01→17:58)
[2017-02-04] MEDS: Ondansetron 2 mg/mL 2 mL Inj IVPUSH PRN ×2 (01:52→17:58)
[2017-02-04] MEDS: Sucralfate 1,000 mg Tablet PO SCH ×5 (02:33→20:35)
[2017-02-04 05:19] VITALS: BP 95/58; PULSE 91; RESP 18; O2SAT 95
[2017-02-04 05:22] LABS: BASOPHILS % (AUTO) 0.1 % (0-3); EOSINOPHILS % (AUTO) 1.9 % (0-5); MONOCYTES % (AUTO) 9.2 % (4-12); Mean Corpuscular Hemoglobin 31.6 pg (27.0-35.0); Mean Corpuscular Volume 94.4 fL (81-100); NEUTROPHILS % (AUTO) 77.7 % (40-74); Platelet Count 76 bil/L (150-400)
--- NOTE | 2017-02-04 05:32 | NUR ---
Nausea / vomiting Pt had 2 episodes of large volume emesis; c/o heartburn at each time. Maalox minimally effective, new order for carafate given with improved control. No further nausea or vomiting. Pain adequately controlled with 1 [place] prn. Hourly rounding ongoing.
[2017-02-04] MEDS: HYDROcodone-APAP 5-325 mg Tablet PO PRN ×3 (05:47→18:14)
--- NOTE | 2017-02-04 07:42 | PCM.PNORTH ---
Subjective Date of Service: Feb 04, 2017 Visit Information: Reason for Visit Right Femoral Neck Fracture Surgery/Surgery Date Post-Op Day # Date of Admission: Feb 01, 2017 at 20:37 Hospital Day # Subjective Status post day #2 right total hip arthroplasty. Patient states he is doing pretty well, states his pain is controlled. He is grateful to have been taken such good care of. Agreeable to work with physical therapy today. Postop General: No Shortness of Breath, No Chest Pain, Good Appetite Pain Management: PO, IV Push Objective Exam Objective Patient is alert and oriented 3. Answering questions appropriately. Patient is sitting up in the bed and not in acute distress today. Dressing is clean dry and intact. Upon dressing change, incision is dry, no discharge, no erythema, Steri-Strips intact. Calf is soft and nontender. Sensation and pulses intact, patient able to wiggle toes. Vital Signs and I/O Vital Sign - Last Date Time Temp Pulse Resp B/P Pulse Ox O2 Delivery O2 Flow Rate FiO2 02/04/17 05:19 37.5 91 18 95/58 95 Room Air 02/03/17 05:15 2.00 Intake and Output 02/03/17 02/03/17 02/04/17 Cumulative From/Thru 15:00 23:00 07:00 02/01/17 18:15 - 02/04/17 06:05 Intake Total 968 ml 960 ml 200 ml 5308 ml Output Total 400 ml 1500 ml 4650 ml Balance 968 ml 560 ml -1300 ml 658 ml Intake Oral 860 ml 200 ml 1860 ml IV Total 968 ml 100 ml 3448 ml Output Urine Total 400 ml 200 ml 3100 ml Emesis 1300 ml 1300 ml Estimated Blood Loss 250 ml # Bowel Movements 0 0 Lab & Micro Results Laboratory Tests Test 02/04/17 04:50 White Blood Count 6.9th/mm3 (3.8-10.1) Red Blood Count 2.85mil/mm3 (4.40-5.80) Hemoglobin 9.0g/dL (13.8-17.2) Hematocrit 26.9% (41.0-50.0) Mean Corpuscular Volume 94.4fL (81-100) Mean Corpuscular Hemoglobin 31.6pg (27.0-35.0) Mean Corpuscular Hemoglobin Concent 33.5% (32.0-37.0) Red Cell Distribution Width 14.9% (12.3-15.4) Platelet Count 76bil/L (150-400) Neutrophils (%) (Auto) 77.7% (40-74) Lymphocytes (%) (Auto) 10.7% (14-46) Monocytes (%) (Auto) 9.2% (4-12) Eosinophils (%) (Auto) 1.9% (0-5) Basophils (%) (Auto) 0.1% (0-3) Sodium Level 137mEq/L (134-144) Potassium Level 5.0mEq/L (3.5-5.2) Chloride Level 101mEq/L (97-108) Carbon Dioxide Level 24mmol/L (18-29) Blood Urea Nitrogen 27mg/dL (8-27) Creatinine 1.40mg/dL (0.76-1.27) Estimat Glomerular Filtration Rate 51mL/min (>59) Glucose Level 130mg/dL (60-99) Calcium Level 8.1mg/dL (8.5-10.1) Result Diagram: 02/04/1744902/04/17449 SURGICAL WOUND : Incision General Appearance: No Direct Observation Activity: Activity per PT Catheters: Urethral 2 Way Boucher Assessment & Plan Impression Status post day #2 right total hip arthroplasty. Patient's pain is well controlled. Patient's hemoglobin is still slightly trending down but still at 9.0 today. Has not walk sufficiently with physical therapy as to date. Problems: Plan Weightbearing: Partial weightbearing 50% on the right lower extremity with front wheeled walker DVT prophylaxis: aspirin 325 mg twice a day 6 weeks Physical therapy for transfers, progressive ambulation, therapeutic exercise Hip precautions: Anterior and posterior hip precautions Hip abduction pillow at night when sleeping. He knees a regular pillow between the knees when in bed during the day Dressing change performed today. We will keep this intact and changed daily, as needed while in the hospital. Discharge plan: Discharge to SNF most likely tomorrow. [facility]'s preference is [facility]. Follow-up plan: In 2 weeks at [facility] with MARVIN for wound check and at [address] Darden with x-rays VTE Prophylaxis: SCDs, Other (aspirin) Resuscitation Status: CPR: Attempt Resuscitation Alistair Ahuja PA-C Feb 04, 2017 07:42
[2017-02-04 08:11] VITALS: BP 95/56; PULSE 86; RESP 18; O2SAT 95
[2017-02-04] MEDS: MeTOProlol XL 25 mg ER24 Tablet PO SCH (08:30)
[2017-02-04] MEDS: Senna-Docusate 8.6-50 mg Tablet PO SCH ×2 (09:07→20:30)
[2017-02-04 13:33] VITALS: BP 101/59; PULSE 85; RESP 18; O2SAT 95
--- NOTE | 2017-02-04 14:19 | PCM.PNMED ---
Subjective Date of Service Feb 04, 2017 Subjective Denies any new issues/complaints Exam Vital Signs Vital Sign - Last Date Time Temp Pulse Resp B/P Pulse Ox O2 Delivery O2 Flow Rate FiO2 02/04/17 13:33 36.9 85 18 101/59 95 Room Air 02/03/17 05:15 2.00 Intake and Output 02/03/17 02/03/17 02/04/17 Cumulative From/Thru 15:00 23:00 07:00 02/01/17 18:15 - 02/04/17 06:05 Intake Total 968 ml 960 ml 200 ml 5308 ml Output Total 400 ml 1500 ml 4650 ml Balance 968 ml 560 ml -1300 ml 658 ml Intake Oral 860 ml 200 ml 1860 ml IV Total 968 ml 100 ml 3448 ml Output Urine Total 400 ml 200 ml 3100 ml Emesis 1300 ml 1300 ml Estimated Blood Loss 250 ml # Bowel Movements 0 0 Exam General: Alert, Cooperative, No Acute Distress Head: Normal Eyes: Scleral Anicteric Mouth: Mucous Membr Moist/[place] Neck: Supple Chest & Lungs: Chest Wall Normal, Clear to auscultation bilat Cardiovascular: Regular Rate/Rhythm Abdomen: Non-tender, Non-distended, Normoactive bowel tones, Soft Extremities: No cyanosis/clubbing/edema bilat Neurological: Grossly Neurologically Intact, Normal Speech IVs and Medications Medications Reviewed: Medications were reviewed in detail Lab and Diagnostics Result Diagram: 02/04/17 0450 02/04/17 0450 X-Rays, CTs and MRIs X-RAY RIGHT FEMUR, TWO VIEWS IMPRESSION: No fracture of the right femur is identified. Limited view of the right femoral neck because of extreme external rotation and patient's inability to move the leg. Approved by: Clifton Chapman M.D. on 02/01/2017 at 19:30 X-RAY RIGHT HIP COMPLETE, MINIMUM TWO VIEWS IMPRESSION: The capital fracture with slight displacement and minimal compression. Approved by: Clifton Chapman M.D. on 02/01/2017 at 20:09 Cardiac Echo Impressions Echocardiogram Report 12/19/2016 Interpretation Summary The left ventricle is normal in size. The ejection fraction is estimated to be 55-60%. Apical wall motion abnormality may reflect pacemaker activation. Assessment of diastolic parameters indicates a relaxation abnormality of the left ventricle, consistent with normal filling pressures. There is a pacemaker lead in the right ventricle. There is moderate to severe tricuspid regurgitation. Right ventricular systolic pressure is estimated to be 34 mmHg plus the clinically estimated CVP which cannot be estimated on this exam. The right ventricle is moderate to severely dilated. Right ventricular systolic function is moderately reduced. Injection of contrast documented no interatrial shunt. Moderate AAA measuring 3.5 cm. No other echocardiographic abnormalities seen. Compared with the prior exam there are no significant changes. The RV size and function are similar and I would read the prior exam as showing moderately severe RV enlargement and moderate RV dysfunction. No obvious etiology for the patients TIA is noted on this exam. Additional Diagnostics Device check. 11/10/2016 02:30 PM Page: 06/27 Test done via remote monitor. Battery and lead parameters are WNL. Appropriate Rate Histogram with 63% Atrial Pacing and 66% Ventricular Pacing. 27 AMS episode in which no recordings were made. AT/AF [place] <1%. no history of AF. Next check in 3 months. Linda Loredo, MED,BS Assessment & Plan 89-year-old gentleman with past medical history of CAD status post CABG, SSS status post pacemaker insertion, hyperlipidemia, and GERD with recent TIA presenting with chief complaint of right hip and leg pain. He is admitted for Right femoral neck fracture. # Acute right capital fracture with slight displacement, present on admission. Active. - Post right total hip arthroplasty on 02/02/17 - Appreciate ortho consult. Will followup with surgery: - Weightbearing: Partial weightbearing 50% on the right lower extremity with front wheeled walker - DVT prophylaxis: aspirin 325 mg twice a day 6 weeks - Physical therapy for transfers, progressive ambulation, therapeutic exercise - Hip precautions: Anterior and posterior hip precautions - Hip abduction pillow at night when sleeping. He knees a regular pillow between the knees when in bed during the day - Wound care: Surgical dressing is clean, dry and intact. PA will change dressing on postop day 2 to [place] dressing - Follow-up plan: In 2 weeks at [facility] with PA for wound check and at [address] Darden with x-rays - Continue with supportive care. # Acute on Chronic Kidney injury, present on admission. Improving - Baseline ~ 1.3 - Improved with IVF - Followup # Coronary artery disease, History of CABG - Continue with home meds # Sick Sinus Syndrome with permanent pacemaker. - Recent interrogation of pacemaker within normal - Continue home Metoprolol succinate 25 mg daily. # Hyperlipidemia - Continue home Lovastatin 40 mg HS. # GERD - Continue home omeprazole. # History of recent TIA - Not on anticoagulation. Just ASA. # BPH - Continue home Tamsulosin Dispo: [facility] 1-2 days VTE Prophylaxis: SCDs, Other (aspirin) VTE Mechanical Devices: Intermittant Pneumatic CD Resuscitation Status: CPR: Attempt Resuscitation Chu Leslie Feb 04, 2017 14:19
--- NOTE | 2017-02-04 17:24 | NUR ---
Up w/PT only; pt unable to maintain 50% WBing status Addendum: 02/05/17 at 1023 by BUD FOX PTA Pt is now safe to transfer with nsg.
--- NOTE | 2017-02-04 19:16 | NUR ---
Indigestion Pt stating long hx of indigestion, burping and wretching. Continued post IVP Zofran and Carafate. Pt states taking medication for this but none noted in med rec. Pt slow and steady with eating, thus far, tolerating PO. 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 Care continues.
[2017-02-04 21:00] VITALS: BP 101/56; PULSE 81; RESP 16; O2SAT 96
[2017-02-05] MEDS: Sodium Chloride LOK Flush 10 mL Syringe IV SCH ×2 (01:31→09:47)
[2017-02-05] MEDS: HYDROcodone-APAP 5-325 mg Tablet PO PRN (04:56)
[2017-02-05 05:45] VITALS: BP 114/69; PULSE 88; RESP 18; O2SAT 93
--- NOTE | 2017-02-05 06:41 | NUR ---
GI reports slight nausea at HS that resolved without antiemetic. Passing flatus, no BM. Ortho checks intact. Wedge between legs overnight. Moderate incisional pain and 1 Vicodin has been effective tonight.
[2017-02-05] MEDS: MeTOProlol XL 25 mg ER24 Tablet PO SCH (09:46)
[2017-02-05] MEDS: Sucralfate 1,000 mg Tablet PO SCH ×2 (09:46→11:25)
[2017-02-05] MEDS: Senna-Docusate 8.6-50 mg Tablet PO SCH (09:46)
[2017-02-05 10:09] VITALS: PULSE 103
--- NOTE | 2017-02-05 10:10 | NUR ---
Social Work: Readiness for Discharge/Multidisciplinary Rounds D: EMR reviewed. Pt is on day 4 of hospitalization. Pt discussed in multidisciplinary rounds. Per MD, pt is medically stable to discharge to SNF today. Pt has been accepted at [facility] with Dr. Chan to follow. Per RN, pt will be ready for transport after 1200. SW to arrange wheelchair van transport through [facility] once discharge orders are completed. SW to update RN and pt on transport time. [facility] faxed and received. SW to fax discharge packet once orders are complete. A: Pt for whom a SNF if medically necessary. P: Pt to transport to [facility] with Dr. Chan to follow after 1200 today. SW to fax discharge packet to [facility] once discharge orders complete. SW to schedule transport with [employer] wheelchair van through [facility]. SW to update pt and RN on transport time. SW will continue to follow. DIANDRA Ojeda
[2017-02-05] MEDS ORDERED: HYDR-4003 PO (10:11)
[2017-02-05] MEDS ORDERED: DOCU-41 PO (10:11)
[2017-02-05] MEDS ORDERED: ASPI325T32 PO (10:11)
--- NOTE | 2017-02-05 10:16 | PCM.DIMED ---
Discharge Instructions Date of Service Feb 05, 2017 Dates of Hospitalization Feb 01, 2017 at 20:37 Discharge Diagnosis Discharge Diagnosis # Acute right capital fracture with slight displacement, present on admission. - Post right total hip arthroplasty on 02/02/17 # Acute on Chronic Kidney injury, present on admission. Resolved - Baseline ~ 1.3 # Coronary artery disease, History of CABG. Presumed stable. # Sick Sinus Syndrome with permanent pacemaker. - Recent interrogation of pacemaker within normal # Hyperlipidemia # GERD # History of recent TIA # BPH Medication Instructions Additional med instructions DVT prophylaxis: Aspirin 325 mg twice a day 6 weeks Diet Discharge Diet: Low fat, Low Sodium, Heart Healthy Activity Discharge Activity: Other (per physical therapy) Patient Instructions Patient Instructions Weightbearing: Partial weightbearing 50% on the right lower extremity with front wheeled walker Physical therapy for transfers, progressive ambulation, therapeutic exercise Hip precautions: Anterior and posterior hip precautions Hip abduction pillow at night when sleeping. He needs a regular pillow between the knees when in bed during the day Dressing change daily, as needed Follow-up plan 1. Follow-up in [address] [facility] with MARVIN for wound check and at [address] Darden with x-rays [address] [id number] 2. Followup with primary care provider in 1-2 weeks. Follow-up Provider: Grady Darden DO Mid-level Provider (F9): Zoe Batista PA-C, Mas[place] Feb 05, 2017 10:16
--- NOTE | 2017-02-05 10:25 | PCM.PNORTH ---
Subjective Date of Service: Feb 05, 2017 Visit Information: Reason for Visit Right Femoral Neck Fracture Surgery/Surgery Date Post-Op Day # 3 Date of Admission: Feb 01, 2017 at 20:37 Hospital Day # Subjective Patient states he is still taking oral pain medications but feels as if his pain is well controlled. He states he was up with physical therapy and did " much better than yesterday." Postop General: No Complaints, No Shortness of Breath, No Chest Pain, Good Appetite Pain Management: PO, IV Push Objective Exam Objective Patient sitting up in bed. Family at bedside. Vital Signs and I/O Vital Sign - Last Date Time Temp Pulse Resp B/P Pulse Ox O2 Delivery O2 Flow Rate FiO2 02/05/17 09:58 Supplement Oxygen 02/05/17 05:45 36.9 88 18 114/69 93 02/04/17 21:00 2.00 Intake and Output 02/04/17 02/04/17 02/05/17 Cumulative From/Thru 15:00 23:00 07:00 02/01/17 18:15 - 02/05/17 01:17 Intake Total 700 ml 6008 ml Output Total 800 ml 5450 ml Balance -100 ml 558 ml Intake Oral 700 ml 2560 ml IV Total 3448 ml Output Urine Total 800 ml 3900 ml Emesis 1300 ml Estimated Blood Loss 250 ml # Bowel Movements 0 0 Result Diagram: 02/04/17 0450 02/04/17 0450 General Appearance: Alert, Oriented X3, Cooperative, No Acute Distress Extremities: Distal Pulses Palpable, Warm, No Edema, No Compartment Syndrom Noted, Cyanotic Postop Sensory Motor: Distal Motor Intact, Movement in Toes, Distal Sensation Intact, NVI Distally SURGICAL WOUND : Wound Location/Description Dressing c/d/i Incision General Appearance: No Direct Observation Activity: Activity per PT Assessment & Plan Impression Status post day #3 right total hip arthroplasty. Problems: Plan Weightbearing: Partial weightbearing 50% on the right lower extremity with front wheeled walker DVT prophylaxis: Aspirin 325 mg twice a day 6 weeks Physical therapy for transfers, progressive ambulation, therapeutic exercise Hip precautions: Avoid any internal rotation of the hip as well as avoiding flexion past 90 degrees and avoiding active abduction. Hip abduction pillow at night when sleeping. He should have a regular pillow between the knees when in bed during the day Change dressings as needed. May shower when incision is dry and there are no signs of drainage. Discharge plan: Discharge to SNF via wheelchair van for PT/OT. Follow-up plan: In 2 weeks at [facility] with MARVIN for wound check and at [address] Darden with x-rays VTE Prophylaxis: SCDs, Other (aspirin) Resuscitation Status: CPR: Attempt Resuscitation Stephanie Hansen PA-C Feb 05, 2017 10:25
--- NOTE | 2017-02-05 12:00 | NUR ---
Respiratory Patient is short of breath with labored breathing with activity. He is using the incentive spirometer often while awake. At the start of shift, the patient was on 2L oxygen via nasal canula because he desats while sleeping. After breakfast, he was on room air and tolerated this well. Patient also spent a couple hours sitting up in the chair talking with family. Spot checking O2 sats and assessing shortness of breath. Continuing to encourage IS use.
[2017-02-05 12:02] VITALS: BP 109/75; PULSE 79; RESP 18; O2SAT 93
--- NOTE | 2017-02-05 14:15 | NUR ---
Social Work: Discharge D: EMR reviewed. Pt is on day 4 of hospitalization. Pt discussed in multidisciplinary rounds. Per MD, pt is medically stable to discharge to SNF today. Pt has been accepted at [facility] with Dr. Chan to follow. [employer] will provide pt transport to [facility] today between [id number]. LEEANNE completed transfer packet, faxed discharge ppw, and confirmed with Lori at [facility] that they received faxed information. SW left transfer packet at RN station and updated UA of pt's transfer. RN updated on transfer time. Pt updated on transfer time. All agreeable to discharge plan and transfer time. A: Pt for whom a SNF if medically necessary. P: Pt to transport to [facility] with Dr. Chan to follow via [facility] transport between [id number] today. LEEANNE completed transfer packet, faxed discharge ppw, and confirmed with Lori at [facility] that they received faxed information. SW left transfer packet at RN station and updated UA of pt's transfer. RN updated on transfer time. Pt updated on transfer time. All agreeable to discharge plan and transfer time. DIANDRA Ojeda
--- NOTE | 2017-02-05 14:27 | NUR ---
Discharge Patient was discharged to [facility] and left via wheelchair transport at 1415. Transferred to wheelchair from bed with the FWW and 1 person assist. IV was DC'd intact and dressing placed over site. Patient went in a hospital gown as his jeans were cut off of him on admit. All of his personal belongings went with him including home medications from the pharmacy. Report was called to DASHAWN Laird RN, at about 1300.
--- NOTE | 2017-02-05 18:14 | PCM.DC.MED ---
Discharge Summary Date of Service Feb 05, 2017 Dates of Hospitalization Date of Hospital Admission Feb 01, 2017 at 20:37 Date of Discharge: Feb 05, 2017 Providers: Admitting Physician: Carmen Workman DO Primary Care Physician: Zoe Batista PA-C Attending Physician: Chu Mcqueen Diagnosis at Time of Discharge Diagnosis at Time of Discharge # Acute right capital fracture with slight displacement, present on admission. - Post right total hip arthroplasty on 02/02/17 # Acute on Chronic Kidney injury, present on admission. Resolved - Baseline ~ 1.3 # Coronary artery disease, History of CABG. Presumed stable. # Sick Sinus Syndrome with permanent pacemaker. - Recent interrogation of pacemaker within normal # Hyperlipidemia # GERD # History of recent TIA # BPH Consultations 1. Ortho Procedures XRay, CTs & MRIs X-RAY RIGHT FEMUR, TWO VIEWS IMPRESSION: No fracture of the right femur is identified. Limited view of the right femoral neck because of extreme external rotation and patient's inability to move the leg. Approved by: Clifton Chapman M.D. on 02/01/2017 at 19:30 X-RAY RIGHT HIP COMPLETE, MINIMUM TWO VIEWS IMPRESSION: The capital fracture with slight displacement and minimal compression. Approved by: Clifton Chapman M.D. on 02/01/2017 at 20:09 Cardiac Echo Impression Echocardiogram Report 12/19/2016 Interpretation Summary The left ventricle is normal in size. The ejection fraction is estimated to be 55-60%. Apical wall motion abnormality may reflect pacemaker activation. Assessment of diastolic parameters indicates a relaxation abnormality of the left ventricle, consistent with normal filling pressures. There is a pacemaker lead in the right ventricle. There is moderate to severe tricuspid regurgitation. Right ventricular systolic pressure is estimated to be 34 mmHg plus the clinically estimated CVP which cannot be estimated on this exam. The right ventricle is moderate to severely dilated. Right ventricular systolic function is moderately reduced. Injection of contrast documented no interatrial shunt. Moderate AAA measuring 3.5 cm. No other echocardiographic abnormalities seen. Compared with the prior exam there are no significant changes. The RV size and function are similar and I would read the prior exam as showing moderately severe RV enlargement and moderate RV dysfunction. No obvious etiology for the patients TIA is noted on this exam. Other Diagnostics Device check. 11/10/2016 02:30 PM Page: 06/27 Test done via remote monitor. Battery and lead parameters are WNL. Appropriate Rate Histogram with 63% Atrial Pacing and 66% Ventricular Pacing. 27 AMS episode in which no recordings were made. AT/AF Sharon <1%. no history of AF. Next check in 3 months. Linda Loredo, MED,BS Brief History As noted in H&P by Dr. Paul: Mr. Live Whitaker is an 89-year-old gentleman with past medical history of CAD status post CABG, SSS status post pacemaker insertion, hyperlipidemia, and GERD with recent TIA presenting with chief complaint of right hip and leg pain. He was carrying a heavy bucket of water out to water his chickens when he stumbled and fell. He was out in the yard following his fall for roughly 1.5 hours before his found him and call EMS. Patient reports that any motion produces cramping pain. He denies syncope, headache, fever, chills, nausea, vomiting, chest pain, shortness of breath. Of note he was difficult to interview and was very sleepy due to pain medications. In the ED: T - ?, HR - 59, RR - 22, BP - 111/56, 97 % RA. Hospital Course # Acute right capital fracture with slight displacement, present on admission. Active. - Post right total hip arthroplasty on 02/02/17 - Appreciate ortho consult: - Weightbearing: Partial weightbearing 50% on the right lower extremity with front wheeled walker - DVT prophylaxis: aspirin 325 mg twice a day 6 weeks - Physical therapy for transfers, progressive ambulation, therapeutic exercise - Hip precautions: Anterior and posterior hip precautions - Hip abduction pillow at night when sleeping. He knees a regular pillow between the knees when in bed during the day - Wound care: Surgical dressing is clean, dry and intact. PA will change dressing on postop day 2 to Island dressing - Follow-up plan: In 2 weeks at [facility] ([facility]) with PA for wound check and at [address] Darden with x-rays # Acute on Chronic Kidney injury, present on admission. Improved back to baseline - Baseline ~ 1.3 - Improved with IVF # Coronary artery disease, History of CABG - Continued with home meds # Sick Sinus Syndrome with permanent pacemaker. - Recent interrogation of pacemaker within normal - Continued home Metoprolol succinate 25 mg daily. # Hyperlipidemia - Continued home Lovastatin 40 mg HS. # GERD - Continued home omeprazole. # History of recent TIA - Not on anticoagulation. Just ASA. # BPH - Continued home Tamsulosin Exam Vital Signs (Last) Date Time Temp Pulse Resp B/P Pulse Ox O2 Delivery O2 Flow Rate FiO2 02/05/17 12:02 36.8 79 18 109/75 93 Room Air 02/05/17 10:09 1.00 Exam Lungs: CTA bilat CV: RRR Test 02/01/17 18:45 02/02/17 05:20 02/04/17 04:50 Hold Purple Top Tube Received (Received) Hold Blue Top Tube Received (Received) Hold Amawalk Top Tube Received (Received) Prothrombin Time 11.7sec (8.1-12.5) Prothromb Time International Ratio 1.09ratio Total Bilirubin 0.9mg/dL (0.0-1.2) Aspartate Amino Transf (AST/SGOT) 17U/L (0-50) Alanine Aminotransferase (ALT/SGPT) 15U/L (0-44) Alkaline Phosphatase 51U/L (25-160) Total Protein 5.5g/dL (6.4-8.4) Albumin 3.6g/dL (3.4-5.0) White Blood Count 6.9th/mm3 (3.8-10.1) Red Blood Count 2.85mil/mm3 (4.40-5.80) Hemoglobin 9.0g/dL (13.8-17.2) Hematocrit 26.9% (41.0-50.0) Mean Corpuscular Volume 94.4fL (81-100) Mean Corpuscular Hemoglobin 31.6pg (27.0-35.0) Mean Corpuscular Hemoglobin Concent 33.5% (32.0-37.0) Red Cell Distribution Width 14.9% (12.3-15.4) Platelet Count 76bil/L (150-400) Neutrophils (%) (Auto) 77.7% (40-74) Lymphocytes (%) (Auto) 10.7% (14-46) Monocytes (%) (Auto) 9.2% (4-12) Eosinophils (%) (Auto) 1.9% (0-5) Basophils (%) (Auto) 0.1% (0-3) Sodium Level 137mEq/L (134-144) Potassium Level 5.0mEq/L (3.5-5.2) Chloride Level 101mEq/L (97-108) Carbon Dioxide Level 24mmol/L (18-29) Blood Urea Nitrogen 27mg/dL (8-27) Creatinine 1.40mg/dL (0.76-1.27) Estimat Glomerular Filtration Rate 51mL/min (>59) Glucose Level 130mg/dL (60-99) Calcium Level 8.1mg/dL (8.5-10.1) Discharge Medications Discharge Medications Aspirin (Aspirin) 325 Mg Tablet 325 MG PO BID Prescribed by: CHU MCQUEEN MD Docusate Sodium (Colace) 100 Mg Capsule 100 MG PO BID Prescribed by: CHU CMQUEEN MD Fish Oil/Borage/Flax/Om3,6,9#1 (Elton 3-6-9 1,200 mg Softgel) 1,200 Mg Capsule 1 ,200 MG PO BID (Reported) Ketoconazole (Ketoconazole) 200 Mg Tablet 200 MG PO BID (Reported) Lovastatin (Lovastatin) 40 Mg Tablet 40 MG PO HS (Reported) Metoprolol Succinate ER (Metoprolol Succinate ER) 25 Mg Tab.er.24h 25 MG PO QAM (Reported) Omeprazole (Omeprazole) 20 Mg Capsule.dr 20 MG PO QAM (Reported) Tamsulosin (Flomax) 0.4 Mg Capsule 0.4 MG PO HS (Reported) Ubidecarenone/Vitamin E Mixed (Wvl95-Iek E 100 mg-10 Unit Sfg) 100 Mg-10 Unit Capsule 1 TAB PO QAM (Reported) As needed Hydrocodone-Acetaminophen 5-325 mg (Hydrocodone-Acetaminophen 5-325 mg) 1 Each Tablet 1-2 TABLET PO Q4H PRN PRN For Moderate Pain Prescribed by: CHU MCQUEEN MD Nitroglycerin SL (Nitrostat) 0.4 Mg Tab.subl 0.4 MG SL Q5MIN PRN PRN For Chest Pain (Reported) Additional med instructions DVT prophylaxis: Aspirin 325 mg twice a day 6 weeks Followup Plan Disposition: [facility] Follow-up plan 1. Follow-up in 2 weeks at [facility] ([facility] with PA for wound check and at [address] Darden with x-rays [address] [id number] 2. Followup with primary care provider in 1-2 weeks. Discharge Diet: Low fat, Low Sodium, Heart Healthy Discharge Activity: Other (per physical therapy) Patient Instructions Weightbearing: Partial weightbearing 50% on the right lower extremity with front wheeled walker Physical therapy for transfers, progressive ambulation, therapeutic exercise Hip precautions: Anterior and posterior hip precautions Hip abduction pillow at night when sleeping. He needs a regular pillow between the knees when in bed during the day Dressing change daily, as needed Follow-up Provider: Grady Darden DO Mid-level Provider: Zoe Batista PA-C Time spent 30 min copies to: Zoe Batista PA-C; Grady Darden Masoud Feb 05, 2017 18:14
== END 2017-02-05 14:15 | DRG 470 ==
LOC: SED 18:11 → OSC 20:37
PROVIDERS: ADMIT Internal Medicine; ATTEND Internal Medicine
PROC: 0SR902A Replacement of Right Hip Joint with Metal on Polyethylene Synthetic Substitute, Uncemented, Open Approach (ICD-10-PCS; principal; 2017-02-02 16:00)
DX: S72.011A Unspecified intracapsular fracture of right femur, initial encounter for closed fracture (principal); N17.9 Acute kidney failure, unspecified; I25.10 Atherosclerotic heart disease of native coronary artery without angina pectoris; Z95.1 Presence of aortocoronary bypass graft; E78.5 Hyperlipidemia, unspecified; K21.9 Gastro-esophageal reflux disease without esophagitis; Z95.0 Presence of cardiac pacemaker; Z86.73 Personal history of transient ischemic attack (TIA), and cerebral infarction without residual deficits; N40.0 Benign prostatic hyperplasia without lower urinary tract symptoms; W01.0XXA Fall on same level from slipping, tripping and stumbling without subsequent striking against object, initial encounter; Y93.89 Activity, other specified; Y92.017 Garden or yard in single-family (private) house as the place of occurrence of the external cause; Y99.8 Other external cause status; Z87.891 Personal history of nicotine dependence